=== PATIENT | female | born 1985 | race Caucasian/White ===

== ENCOUNTER 2017-10-12 15:44 | Outpatient (POV) | payer MEDICAID, SELFPAY | END 2017-10-12 16:50 | disposition home or self-care (01) | PROVIDERS: Visit Provider Podiatrist | DX: M72.2 Plantar fascial fibromatosis (principal) | CPT/HCPCS: 99202; 20550; J1100; J3301 ==

== ENCOUNTER 2017-11-24 11:09 | Emergency (ER) | payer MEDICAID, SELFPAY ==
[2017-11-24 11:13] VITALS: BP 148/100; PULSE 87; RESP 18; TEMP 36.3; O2SAT 99; BMI 49.1
--- NOTE | 2017-11-24 11:32 | HMH.EDUTC ---
[facility] [place] Clinical Impression: Pain due to dental caries Disposition: Home, Self-Care Condition on Discharge: Good Instructions: DI for Dental Pain Additional Instructions: Call Dr. Coronel's office as soon as you leave here. They will get your information and then have you come in this afternoon for an evaluation. Based on what they find, will determine when they schedule your next appointment. * Start amoxicillin today!!! Finish it as directed even if feeling better unless directed otherwise by Dr. Coronel or you develop a reaction (in which case stop the medication and follow up immediately) * Tylenol every 4-6 hours no more then 1000mg per dose or 4000mg in 24 hours as needed for pain * Use caution with motrin, aleve, advil, ibuprofen since you are taking meloxicam for your heel spur * Warm moist compresses on that side of face * Seek immediate medical attention for new or worsening symptoms as we discussed. Prescriptions: Amoxicillin [Amoxicillin 500mg Cap] 500 mg PO TID #30 cap Referrals: Yves Coronel [Referring] - (Call them immediately after our appt [phone] as we discussed. ) Time of Disposition: 11:49 Medical Decision Making Vital Signs: 11/24/17 11:13 Temperature 97.3 F L Temperature Source Temporal Artery Scan Pulse Rate [Right Radial] 87 Respiratory Rate 18 Blood Pressure [Right Arm] 148/100 Blood Pressure Mean [Right Arm] 116 Blood Pressure Source [Right Arm] Automatic Cuff Blood Pressure Position [Right Arm] Sitting 02 Sat by Pulse Oximetry 99 Oxygen Delivery Method Room Air Orders (Tests/Meds): ED MEDICATIONS Discontinued Medications Generic Name Dose Route Start Last Admin Trade Name Melisa PRN Reason Stop Dose Admin Benzocaine/Butamben/Tetracaine HCl 1 gm 11/24/17 11:37 Cetacaine [place] TP 11/24/17 11:38 ONCE ONE Lidocaine HCl 15 ml 11/24/17 11:37 Lidocaine 2% Viscous Solution 15ml Udc PO 11/24/17 11:38 ONCE ONE - Physician Consults Physician Consulted: Attemped to consult Pt's reported dentist, Dr. Cruz Time: 11:35 Reason -: Pt condition Comment/Response: NA. Office open by appt only on Fridays Additional Consult: Dr. Coronel's office Time: 11:40 Reason -: Pt condition Comment/Response: Spoke to Digna. Can speak with and evaluate patient today. Have pt call her after this appt then they will evaluate her this afternoon in order to schedule the next appointment. - Jim Inquiry Pt receiving controlled substance: No [facility] [place] - General Stated complaint: dental pain Time Seen by Provider: 11/24/17 11:25 Mode of Arrival: Ambulatory Source of Information: Patient Limitations: No Limitations Description of Symptoms (Recalled from Triage Doc. by RN): Pt C/O dental pain x2 days HEENT Symptoms (Recalled from RN notes): No Resp Symptoms (Recalled from RN notes): No Skin Symptoms (Recalled from RN notes): No MS Symptoms (Recalled from RN notes): No Functional Status (Recalled from RN notes): N/A - History of Present Illness Provider Complaint: c/o tooth pain right upper molar x 2-3 days. Reports a hx of cavity in that tooth. Called dentist office, Dr. Cruz and reports she was told because she had a new last name she was a new pt. Next new pt appt not for 3 weeks. Pt reports she was there last 1 year ago. Denies swelling and not sure about redness or drainage. Not that I have noticed . No fever, aches, chills. Tylenol barely helping. On meloxicam for heel spur. - Related Data Home Medications Medication Instructions Recorded Confirmed ibuprofen 800 mg tablet 800 mg PO 7 Days tab 11/23/17 meloxicam 7.5 mg tablet 7.5 mg PO 30 Days tab 11/23/17 Previous Rx's Medication Instructions Recorded Amoxicillin [Amoxicillin 500mg 500 mg PO TID #30 cap 11/24/17 Cap] Allergies Allergy/AdvReac Type Severity Reaction Status Date / Time coconut Allergy Unknown Verified 11/24/17 11:52 [From COCONUT (FOOD/DRUG)]
--- NOTE | 2017-11-24 11:36 | ED_ITS ---
[facility] [place] Clinical Impression: Pain due to dental caries Disposition: Home, Self-Care Condition on Discharge: Good Instructions: DI for Dental Pain Additional Instructions: Call Dr. Coronel's office as soon as you leave here. They will get your information and then have you come in this afternoon for an evaluation. Based on what they find, will determine when they schedule your next appointment. * Start amoxicillin today!!! Finish it as directed even if feeling better unless directed otherwise by Dr. Coronel or you develop a reaction (in which case stop the medication and follow up immediately) * Tylenol every 4-6 hours no more then 1000mg per dose or 4000mg in 24 hours as needed for pain * Use caution with motrin, aleve, advil, ibuprofen since you are taking meloxicam for your heel spur * Warm moist compresses on that side of face * Seek immediate medical attention for new or worsening symptoms as we discussed. Prescriptions: Amoxicillin [Amoxicillin 500mg Cap] 500 mg PO TID #30 cap Referrals: Yves Coronel [Referring] - (Call them immediately after our appt [phone] as we discussed. ) Time of Disposition: 11:49 Medical Decision Making Vital Signs: 11/24/17 11:13 Temperature 97.3 F L Temperature Source Temporal Artery Scan Pulse Rate [Right Radial] 87 Respiratory Rate 18 Blood Pressure [Right Arm] 148/100 Blood Pressure Mean [Right Arm] 116 Blood Pressure Source [Right Arm] Automatic Cuff Blood Pressure Position [Right Arm] Sitting 02 Sat by Pulse Oximetry 99 Oxygen Delivery Method Room Air Orders (Tests/Meds): ED MEDICATIONS Discontinued Medications Generic Name Dose Route Start Last Admin Trade Name Melisa PRN Reason Stop Dose Admin Benzocaine/Butamben/Tetracaine HCl 1 gm 11/24/17 11:37 Cetacaine [place] TP 11/24/17 11:38 ONCE ONE Lidocaine HCl 15 ml 11/24/17 11:37 Lidocaine 2% Viscous Solution 15ml Udc PO 11/24/17 11:38 ONCE ONE - Physician Consults Physician Consulted: Attemped to consult Pt's reported dentist, Dr. Cruz Time: 11:35 Reason -: Pt condition Comment/Response: NA. Office open by appt only on Fridays Additional Consult: Dr. Coronel's office Time: 11:40 Reason -: Pt condition Comment/Response: Spoke to Digna. Can speak with and evaluate patient today. Have pt call her after this appt then they will evaluate her this afternoon in order to schedule the next appointment. - Jim Inquiry Pt receiving controlled substance: No [facility] [place] HPI - General Stated complaint: dental pain Time Seen by Provider: 11/24/17 11:25 Mode of Arrival: Ambulatory Source of Information: Patient Limitations: No Limitations Description of Symptoms (Recalled from Triage Doc. by RN): Pt C/O dental pain x2 days HEENT Symptoms (Recalled from RN notes): No Resp Symptoms (Recalled from RN notes): No Skin Symptoms (Recalled from RN notes): No MS Symptoms (Recalled from RN notes): No Functional Status (Recalled from RN notes): N/A - History of Present Illness Provider Complaint: c/o tooth pain right upper molar x 2-3 days. Reports a hx of cavity in that tooth. Called dentist office, Dr. Cruz and reports she was told because she had a new last name she was a new pt. Next new pt appt not for 3 weeks. Pt reports she was there last 1 year ago. Denies swelling and not sure about redness or drainage. Not that I have noticed . No fe
[2017-11-24 12:04] VITALS: BP 148/100; PULSE 87; RESP 18; TEMP 36.3; O2SAT 99
== END 2017-11-24 12:04 | disposition home or self-care (01) ==
PROVIDERS: Emergency Provider Nurse Practitioner Family
DX: K02.9 Dental caries, unspecified (principal)
CPT/HCPCS: 99202

== ENCOUNTER 2017-12-12 06:15 | Emergency (ER) | payer MEDICAID, SELFPAY ==
[2017-12-12 06:22] VITALS: BP 145/99; PULSE 98; RESP 16; TEMP 36.9; O2SAT 97; BMI 50.1
--- NOTE | 2017-12-12 06:41 | HMH.EDURI ---
ED Disposition Clinical Impression: Laryngitis Disposition: Home, Self-Care Condition on Discharge: Good Instructions: DI for Laryngitis Additional Instructions: use meds and see pcp for follow up Prescriptions: Azithromycin [Zithromax 250mg tab] 250 mg PO DIRECTED #6 tab Benzonatate [Tessalon Perle 100mg Cap] 100 mg PO TID #30 cap predniSONE [Prednisone 20mg Tab] 20 mg PO DAILY #10 tab Referrals: Hilario Mack MD [Primary Care Provider] - - Critical Care Critical Care Time: No Attestation: On , the high probability of a clinically significant, sudden or life threatening deterioration of the following system(s) required my full and direct attention, intervention and personal management. The time I documented below is in addition to time spent performing reported procedures but includes the following listed in this critical care notation. Medical Decision Making - Medical Records Medical records reviewed: Yes: I reviewed the patient's medical records. Vital Signs: 12/12/17 06:22 Temperature 98.4 F Temperature Source Oral Pulse Rate [Right Brachial] 98 H Respiratory Rate 16 Blood Pressure [Right Arm] 145/99 Blood Pressure Mean [Right Arm] 114 Blood Pressure Source [Right Arm] Automatic Cuff Blood Pressure Position [Right Arm] Supine 02 Sat by Pulse Oximetry 97 Oxygen Delivery Method Room Air - Lab Data Lab results reviewed: Yes: I reviewed the patient's lab results. Lab Results 12/12/17 06:35: Influenza Type A Ag Negative, Influenza Type B Ag Negative, Group A Strep Rapid Negative Orders (Tests/Meds): ORDERS Category Date Time Status Strep Screen Confirmation Stat Micro 12/12/17 06:35 Received - Jim Inquiry Pt receiving controlled substance: No URI/Sore Throat HPI - General Chief Complaint: Ear Stated Complaint: Sore throat, right ear pain, sinus drainage Time Seen by Provider: 12/12/17 06:41 Mode of Arrival: Ambulatory Source of Information: Patient, Significant Other, Medical Record Limitations: No Limitations Description of Symptoms (Recalled from ER Triage Doc. by RN): SORE THROAT, MAINLY ON RIGHT SIDE, WITH ASSOCIATED EAR PAIN AND COUGH. 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 Complaint: cough, sore throat Onset (ago): day(s) Severity: moderate Able to tolerate fluids by mouth: Yes - Related Data Home Medications Medication Instructions Recorded Confirmed meloxicam 7.5 mg tablet 7.5 mg PO DAILY 30 Days tab 11/23/17 12/12/17 Previous Rx's Medication Instructions Recorded Azithromycin [Zithromax 250mg 250 mg PO DIRECTED #6 tab 12/12/17 tab] Benzonatate [Tessalon Perle 100mg 100 mg PO TID #30 cap 12/12/17 Cap] predniSONE [Prednisone 20mg 20 mg PO DAILY #10 tab 12/12/17 Tab] Allergies Allergy/AdvReac Type Severity Reaction Status Date / Time coconut Allergy Unknown Verified 11/24/17 11:52 [From COCONUT (FOOD/DRUG)] [facility] History I have reviewed the patient's past medical history: Yes Medical History: Reports:: Gastroesophageal Reflux Disease(GERD) Denies:: Aneurysm, Atrial Fibrillation, Cancer, Congestive Heart Failure, Diabetes Mellitus Type 1, Diabetes Mellitus Type 2, Hyperlipidemia, Hypertension, MRSA, Renal Disease, Renal Insufficiency Other Medical History: Reports: Arthritis, Other (heel spur). Denies: Hypothyroidism, Thyroid Disease Laterality Cases: Bilateral: Tonsillectomy Other Surgeries: Yes: Other (cholecystectomy) Amputation: No Fractures: No (left ankle (x1), right ankle (x2), right wrist, left big toe) - Social History Educational Level: Attended High School Smoking Status: Current every day smoker Tobacco Type: cigarettes # Packs/Day (cigarettes): 1 Alcohol Intake: never Alcohol Intake Frequency:: 0-2 drinks per day Substance Use Type: denies use Occupational Status: employed - Psych
--- NOTE | 2017-12-12 06:44 | ED_ITS ---
ED Disposition Clinical Impression: Laryngitis Disposition: Home, Self-Care Condition on Discharge: Good Instructions: DI for Laryngitis Additional Instructions: use meds and see pcp for follow up Prescriptions: Azithromycin [Zithromax 250mg tab] 250 mg PO DIRECTED #6 tab Benzonatate [Tessalon Perle 100mg Cap] 100 mg PO TID #30 cap predniSONE [Prednisone 20mg Tab] 20 mg PO DAILY #10 tab Referrals: Hilario Mack MD [Primary Care Provider] - - Critical Care Critical Care Time: No Attestation: On , the high probability of a clinically significant, sudden or life threatening deterioration of the following system(s) required my full and direct attention, intervention and personal management. The time I documented below is in addition to time spent performing reported procedures but includes the following listed in this critical care notation. Medical Decision Making - Medical Records Medical records reviewed: Yes: I reviewed the patient's medical records. Vital Signs: 12/12/17 06:22 Temperature 98.4 F Temperature Source Oral Pulse Rate [Right Brachial] 98 H Respiratory Rate 16 Blood Pressure [Right Arm] 145/99 Blood Pressure Mean [Right Arm] 114 Blood Pressure Source [Right Arm] Automatic Cuff Blood Pressure Position [Right Arm] Supine 02 Sat by Pulse Oximetry 97 Oxygen Delivery Method Room Air - Lab Data Lab results reviewed: Yes: I reviewed the patient's lab results. Lab Results 12/12/17 06:35: Influenza Type A Ag Negative, Influenza Type B Ag Negative, Group A Strep Rapid Negative Orders (Tests/Meds): ORDERS Category Date Time Status Strep Screen Confirmation Stat Micro 12/12/17 06:35 Received - Jim Inquiry Pt receiving controlled substance: No URI/Sore Throat HPI - General Chief Complaint: Ear Stated Complaint: Sore throat, right ear pain, sinus drainage Time Seen by Provider: 12/12/17 06:41 Mode of Arrival: Ambulatory Source of Information: Patient, Significant Other, Medical Record Limitations: No Limitations Description of Symptoms (Recalled from ER Triage Doc. by RN): SORE THROAT, MAINLY ON RIGHT SIDE, WITH ASSOCIATED EAR PAIN AND COUGH. 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 Complaint: cough, sore throat Onset (ago): day(s) Severity: moderate Able to tolerate fluids by mouth: Yes - Related Data Home Medications Medication Instructions Recorded Confirmed meloxicam 7.5 mg tablet 7.5 mg PO DAILY 30 Days tab 11/23/17 12/12/17 Previous Rx's Medication Instructions Recorded Azithromycin [Zithromax 250mg 250 mg PO DIRECTED #6 tab 12/12/17 tab] Benzonatate [Tessalon Perle 100mg 100 mg PO TID #30 cap 12/12/17 Cap] predniSONE [Prednisone 20mg 20 mg PO DAILY #10 tab 12/12/17 Tab] Allergies Allergy/AdvReac Type Severity Reaction Status Date / Time coconut Allergy Unknown Verified 11/24/17 11:52 [From COCONUT (FOOD/DRUG)] [facility] History I have reviewed the patient's past medical history: Yes Medical History: Reports:: Gastroesophageal Reflux Disease(GERD) Denies:: Aneurysm, Atrial Fibrillation, Cancer, Congestive Heart Failure, Awa
[2017-12-12 06:58] LABS: Strep Scrn Group A (Rapid) Negative (Negative)
[2017-12-12 07:26] VITALS: BP 135/87; PULSE 85; RESP 18; TEMP 36.8; O2SAT 98
== END 2017-12-12 07:26 | disposition home or self-care (01) ==
PROVIDERS: Emergency Provider Emergency Medicine; PCP Emergency Medicine
DX: J04.0 Acute laryngitis (principal); K02.9 Dental caries, unspecified
CPT/HCPCS: 87275; 87276; 87430; 99281

== ENCOUNTER 2018-01-07 23:55 | Emergency (ER) | payer MEDICAID, SELFPAY ==
[2018-01-08 00:04] VITALS: BP 132/93; PULSE 85; RESP 16; TEMP 36.8; O2SAT 98; BMI 50.1
[2018-01-08 00:51] LABS: Strep Scrn Group A (Rapid) Negative (Negative)
--- NOTE | 2018-01-08 01:09 | HMH.EDURI ---
ED Disposition Clinical Impression: Acute bronchitis Qualifiers: Bronchitis organism: other organism Qualified Code(s): J20.8 - Acute bronchitis due to other specified organisms Disposition: Home, Self-Care Condition on Discharge: Good Instructions: DI for Acute Bronchitis Additional Instructions: Please drink plenty of fluids, alternate Motrin with Tylenol for body aches/fever control, take antibiotics prescribed as directed, follow-up with your PCP within 2 days if not better. Prescriptions: Amoxicillin/Potassium Clav [Augmentin 875-125 Tablet] 1 tab PO Q12H #20 tab Referrals: Hilario Mack MD [Primary Care Provider] - Forms: Work/School Release Time of Disposition: :12 - Critical Care Critical Care Time: No Attestation: On 01/07/18, the high probability of a clinically significant, sudden or life threatening deterioration of the following system(s) required my full and direct attention, intervention and personal management. The time I documented below is in addition to time spent performing reported procedures but includes the following listed in this critical care notation. Medical Decision Making - Medical Records Medical records reviewed: Yes: I reviewed the patient's medical records. - Jim Inquiry Pt receiving controlled substance: No Vital Signs: 01/08/18 00:04 01/08/18 01:19 Temperature 98.2 F 98.4 F Temperature Source Oral Pulse Rate 84 Pulse Rate [Right Brachial] 85 Respiratory Rate 16 18 Blood Pressure 106/44 Blood Pressure [Right Arm] 132/93 Blood Pressure Mean [Right Arm] 106 02 Sat by Pulse Oximetry 98 - Lab Data Lab Results 01/08/18 00:19: Influenza Type A Ag Negative, Influenza Type B Ag Negative, Group A Strep Rapid Negative Orders (Tests/Meds): ED MEDICATIONS Discontinued Medications Generic Name Dose Route Start Last Admin Trade Name Freq PRN Reason Stop Dose Admin Amoxicillin/Clavulanate Potassium 1 each 01/08/18 01:14 01/08/18 01:19 Augmentin 500mg Tablet PO 01/08/18 01:15 1 each ONCE ONE Administration Protocol Benzonatate 100 mg 01/08/18 09:00 Tessalon Perles 100mg Capsule PO 02/07/18 08:59 TID STEPHANIE Non-Formulary Medication 7.5 mg 01/08/18 09:00 Meloxicam [Meloxicam] PO 02/07/18 08:59 DAILY STEPHANIE Prednisone 20 mg 01/08/18 09:00 Deltasone 20mg Tablet PO 02/07/18 08:59 DAILY STEPHANIE ORDERS Category Date Time Status Strep Screen Confirmation Stat Micro 01/08/18 00:19 Received - Reevaluation(s) Time: 01:00 Reevaluation #1: Upon reevaluation patient appears afebrile, no acute distress. Advise of results obtained, need to follow-up with PCP within 2 days if not better. URI/Sore Throat HPI - General Chief Complaint: Upper Respiratory Infection Stated Complaint: cough,chest congestion,vomiting,unable to keep any Time Seen by Provider: 01/08/18 00:18 Mode of Arrival: Ambulatory Limitations: No Limitations Description of Symptoms (Recalled from ER Triage Doc. by RN): Pt c/o cough, congestion, runny nose. N/V, body aches, sore throat,and HARP for the past 2 days. - History of Present Illness HPI Narrative: This is a 32-year-old female patient arriving to the emergency room with sore throat, body aches, cough and congestion for the past 24 hours. Patient denies any recent travel or exposure to sick contacts. MD Complaint: fever, cough, sore throat, rhinorrhea, nasal congestion Onset (ago): hour(s) (24) Duration: intermittent Severity: mild Severity scale (1-10): 2 Exacerbating factors: nothing Description of mucous: yellow Able to tolerate fluids by mouth: No Associated symptoms: fever, chills, diaphoresis, rhinorrhea, nasal congestion, sore throat Treatments prior to arrival: none - Related Data Home Medications Medication Instructions Recorded Confirmed meloxicam 7.5 mg tablet 7.5 mg PO DAILY 30 Days tab 11/23/17 12/12/17 Previous Rx's Med
--- NOTE | 2018-01-08 01:12 | ED_ITS ---
ED Disposition Clinical Impression: Acute bronchitis Qualifiers: Bronchitis organism: other organism Qualified Code(s): J20.8 - Acute bronchitis due to other specified organisms Disposition: Home, Self-Care Condition on Discharge: Good Instructions: DI for Acute Bronchitis Additional Instructions: Please drink plenty of fluids, alternate Motrin with Tylenol for body aches/ fever control, take antibiotics prescribed as directed, follow-up with your PCP within 2 days if not better. Prescriptions: Amoxicillin/Potassium Clav [Augmentin 875-125 Tablet] 1 tab PO Q12H #20 tab Referrals: Hilario Mack MD [Primary Care Provider] - Forms: Work/School Release Time of Disposition: :12 - Critical Care Critical Care Time: No Attestation: On 01/07/18, the high probability of a clinically significant, sudden or life threatening deterioration of the following system(s) required my full and direct attention, intervention and personal management. The time I documented below is in addition to time spent performing reported procedures but includes the following listed in this critical care notation. Medical Decision Making - Medical Records Medical records reviewed: Yes: I reviewed the patient's medical records. - Jim Inquiry Pt receiving controlled substance: No Vital Signs: 01/08/18 00:04 01/08/18 01:19 Temperature 98.2 F 98.4 F Temperature Source Oral Pulse Rate 84 Pulse Rate [Right Brachial] 85 Respiratory Rate 16 18 Blood Pressure 106/44 Blood Pressure [Right Arm] 132/93 Blood Pressure Mean [Right Arm] 106 02 Sat by Pulse Oximetry 98 - Lab Data Lab Results 01/08/18 00:19: Influenza Type A Ag Negative, Influenza Type B Ag Negative, Group A Strep Rapid Negative Orders (Tests/Meds): ED MEDICATIONS Discontinued Medications Generic Name Dose Route Start Last Admin Trade Name Freq PRN Reason Stop Dose Admin Amoxicillin/Clavulanate Potassium 1 each 01/08/18 01:14 01/08/18 01:19 Augmentin 500mg Tablet PO 01/08/18 01:15 1 each ONCE ONE Administration Protocol Benzonatate 100 mg 01/08/18 09:00 Tessalon Perles 100mg Capsule PO 02/07/18 08:59 TID STEPHANIE Non-Formulary Medication 7.5 mg 01/08/18 09:00 Meloxicam [Meloxicam] PO 02/07/18 08:59 DAILY STEPHANIE Prednisone 20 mg 01/08/18 09:00 Deltasone 20mg Tablet PO 02/07/18 08:59 DAILY STEPHANIE ORDERS Category Date Time Status Strep Screen Confirmation Stat Micro 01/08/18 00:19 Received - Reevaluation(s) Time: 01:00 Reevaluation #1: Upon reevaluation patient appears afebrile, no acute distress. Advise of results obtained, need to follow-up with PCP within 2 days if not better. URI/Sore Throat HPI - General Chief Complaint: Upper Respiratory Infection Stated Complaint: cough,chest congestion,vomiting,unable to keep any Time Seen by Provider: 01/08/18 00:18 Mode of Arrival: Ambulatory Limitations: No Limitations Description of Symptoms (Recalled from ER Triage Doc. by RN): Pt c/o cough, congestion, runny nose. N/V, body aches, sore throat,and HARP for the past 2 days. - History of Present Illness HPI Narrative: This is a 32-year-old female patient arriving to the emergency room with sore
[2018-01-08 01:19] VITALS: BP 106/44; PULSE 84; RESP 18; TEMP 36.9; O2SAT 97
== END 2018-01-08 01:19 | disposition home or self-care (01) ==
PROVIDERS: Emergency Provider Emergency Medicine; PCP Emergency Medicine
DX: J20.8 Acute bronchitis due to other specified organisms (principal); K21.9 Gastro-esophageal reflux disease without esophagitis; E03.9 Hypothyroidism, unspecified; Z90.49 Acquired absence of other specified parts of digestive tract
CPT/HCPCS: 87275; 87276; 87430; 99282

== ENCOUNTER 2022-03-11 15:56 | Emergency (ER) | payer SELFPAY ==
[2022-03-11 16:20] VITALS: BP 130/107; PULSE 116; RESP 20; TEMP 36.7; O2SAT 97; BMI 43.8
[2022-03-11 16:45] LABS: Apearance,Urine Cloudy (Clear); Bilirubin,Urine 1+ (Negative); Blood, Urine 1+ (Negative); Color,Urine Dark Yellow (Yellow); Glucose,Urine (UA) Negative (Negative); Ketones,Urine Negative (Negative); Protein,Urine Trace (Negative); Urobilinogen,Urine 1 EU/dl (0.2)
[2022-03-11 16:46] LABS: UTC Leukocyte Esterase,Urine 1+ (Negative); UTC Nitrate,Urine Positive (Negative)
--- NOTE | 2022-03-11 16:46 | HMH.EDUTC ---
[facility] [place] Disposition Clinical Impression: UTI (urinary tract infection) Qualifiers: Urinary tract infection type: site unspecified Hematuria presence: with hematuria Qualified Code(s): N39.0 - Urinary tract infection, site not specified Disposition: Home, Self-Care Condition on Discharge: Good Instructions: DI for Urinary Tract Infection (UTI), DI for Fatigue Additional Instructions: *Increase fluids. Water not Soda or Tea *Start antibiotic immediately and be sure to take as ordered for the FULL length of time although you should start to see improvement over the next 48 hours *Be SURE to follow up anytime for new or worsening symptoms with your family doctor. AND in 48 hours for urine culture results with your family doctor, if you do not have a doctor then you may call back to the [facility] for urine culture results and further treatment. We do recommend that you choose and establish care with a Primary Care Physician. AND follow up with them in 10-14 days to repeat UA to ensure infection is resolved and blood no longer present *Be sure to let your PCP know that we sent urine cultures from the [facility] so they can follow up to ensure that you area the on the correct antibiotic Call your doctor office and make appointment for 48 hours (2 days from today) to follow up and get the results of your urine culture and further treatment Prescriptions: Cefdinir [Omnicef 300mg Capsule] 300 mg PO BID 7 Days #14 cap Transmission Status: Pending to [id number] Referrals: Skip Judd MD [Primary Care Provider] - As needed Chaim King MD [Staff Physician] - Hilary Schwarz MD [Staff Physician] - Time of Disposition: 17:04 Medical Decision Making - Jim Inquiry Pt receiving controlled substance: No Jim was queried for this patient: No Vital Signs: 03/11/22 16:20 03/11/22 16:57 Temperature 98.0 F 98.0 F Temperature Source Oral Pulse Rate 116 H Pulse Rate [Left Brachial] 116 H Respiratory Rate 20 20 Blood Pressure 130/107 H Blood Pressure [Left Arm] 130/107 H Blood Pressure Mean [Left Arm] 114 Blood Pressure Source [Left Arm] Automatic Cuff Blood Pressure Position [Left Arm] Sitting 02 Sat by Pulse Oximetry 97 Oxygen Delivery Method Room Air - Lab Data Lab results reviewed: Yes: I reviewed the patient's lab results. Lab Results 03/11/22 16:43: Urine Color Dark yellow, Urine Appearance Cloudy, Urine pH 6.0, Ur Specific [place] 1.020, Urine Protein Trace, Urine Glucose (UA) Negative, Urine Ketones Negative, Urine Blood 1+, Urine Nitrate Positive A, Urine Bilirubin 1+ A, Urine Urobilinogen 1, Ur Leukocyte Esterase 1+ A 03/11/22 16:46: Tst Clinic Negative Orders (Tests/Meds): ORDERS Category Date Time Status Urine Culture Stat Micro 03/11/22 16:43 Ordered Medical Decision Narrative: Discussed with patient finding of UA and recommended follow up with OBGYN for irregular periods and needs to get a PCP for full workup and examination and she agreed will treat UTI in the [facility] and she will call Monday and make appointments to get in for a thorough workup and evaluation by PCP [facility] [place] HPI - General Stated complaint: back pain Time Seen by Provider: 03/11/22 16:51 Mode of Arrival: Ambulatory Source of Information: Patient, Spouse Limitations: No Limitations Description of Symptoms (Recalled from Triage Doc. by RN): PATIENT C/O DECREASED APPETITE AND IRREGULAR MENSTRUAL CYCLE X 2 MONTHS AND SORENESS/WEAKNESS TO BLE AFTER ACTIVITY X 1 MONTH. DENIES ABDOMINAL PAIN AND N/V/D. SHE REPORTS AN UNINTENTIONAL 150 POUND WEIGHT LOSS OVER LAST 9 MONTHS HEENT Symptoms (Recalled from RN notes): No Resp Symptoms (Recalled from RN notes): No Skin Symptoms (Recalled from RN notes): No MS Symptoms (Recalled from RN notes): Yes Functional Status (Recalled from RN notes): WNL - History of Present Illness Provider Complaint: Patient states she has been having low back pain on and off for a few weeks Sta
[2022-03-11 16:47] LABS: UTC Pregnancy Test, Urine Negative (Negative)
[2022-03-11 16:57] VITALS: BP 130/107; PULSE 116; RESP 20; TEMP 36.7; O2SAT 97
== END 2022-03-11 17:09 | disposition home or self-care (01) ==
PROVIDERS: Emergency Provider Nurse Practitioner; PCP Family Medicine
DX: N30.00 Acute cystitis without hematuria (principal); G43.709 Chronic migraine without aura, not intractable, without status migrainosus; K21.9 Gastro-esophageal reflux disease without esophagitis; E03.9 Hypothyroidism, unspecified; F17.210 Nicotine dependence, cigarettes, uncomplicated
CPT/HCPCS: 81003; 81025; 87086; 87088; 87186; 99212; G0463

== ENCOUNTER 2022-04-02 18:09 | Emergency (ER) | payer SELFPAY ==
[2022-04-02 18:11] VITALS: BP 150/77; PULSE 87; RESP 20; TEMP 36.7; O2SAT 99; BMI 40.6
--- NOTE | 2022-04-02 19:32 | ECG_ITS ---
APPROVED REPORT Exam: Resting ECG HR:91 bpm ECG Measurements Heart Rate 91 AXES KS 190 P 71 QRSd 108 QRS 102 QT 351 T 129 QTc 400 Conclusion SINUS RHYTHM RIGHT AXIS DEVIATION [QRS AXIS > 100] LOW QRS VOLTAGE IN PRECORDIAL LEADS [QRS DEFLECTION < 1.0 mV IN CHEST LEADS] NONSPECIFIC ST & T-WAVE ABNORMALITY ABNORMAL ECG UNCONFIRMED REPORT Electronically signed by : Mian Benavidez MD 04/05/2022 22:21:17
--- NOTE | 2022-04-02 20:17 | HMH.EDGENADL ---
ED Disposition Clinical Impression: Encounter for medical assessment Disposition: Left Against Medical Advice Condition on Discharge: Undetermined Referrals: Skip Judd MD [Primary Care Provider] - - Critical Care Critical Care Time: No Attestation: On 04/02/22, the high probability of a clinically significant, sudden or life threatening deterioration of the following system(s) required my full and direct attention, intervention and personal management. The time I documented below is in addition to time spent performing reported procedures but includes the following listed in this critical care notation. Medical Decision Making - Medical Records Medical records reviewed: Yes: I reviewed the patient's medical records. - Jim Inquiry Pt receiving controlled substance: No Vital Signs: 04/02/22 18:11 04/02/22 22:26 Temperature 98.1 F 98.1 F Temperature Source Oral Oral Pulse Rate 81 Pulse Rate [Right] 87 Respiratory Rate 20 20 Blood Pressure 146/77 H Blood Pressure [Right Arm] 150/77 H Blood Pressure Mean [Right Arm] 101 Blood Pressure Source [Right Arm] Automatic Cuff 02 Sat by Pulse Oximetry 99 Oxygen Delivery Method Room Air - Lab Data Lab Results 04/02/22 19:41: WBC 8.8, RBC 5.63 H, Hgb 17.8 H, Hct 52.7 H, MCV 93.6, MCH 31.7 H, MCHC 33.8, RDW 14.2, Plt Count 234, MPV 9.1, Neut % (Auto) 71.8, Lymph % (Auto) 16.3, [place] % (Auto) 8.4, Eos % (Auto) 1.3, Baso % (Auto) 2.2 H, Neut # (Auto) 6.3, Lymph # (Auto) 1.4, [place] # (Auto) 0.7, Eos # (Auto) 0.1, Baso # (Auto) 0.2 04/02/22 19:41: Sodium 138, Potassium 3.0 L, Chloride 102, Carbon Dioxide 26, Anion Gap 13.0, BUN 5 L, Creatinine 0.60, Estimated Creat Clear 253, Estimated GFR 114, Est GFR ( Amer) 138, Glucose 132 H, Calcium 9.8, Total Bilirubin 0.7, AST 43 H, ALT 37, Alkaline Phosphatase 93, C-Reactive Protein 14.6 H, Total Protein 7.7, Albumin 4.1, Globulin 3.6 H, Albumin/Globulin Ratio 1.1 04/02/22 19:41: Serum HCG, Qual Negative Result diagrams: 04/02/22 19:41 04/02/22 19:41 Orders (Tests/Meds): ED MEDICATIONS Discontinued Medications Generic Name Dose Route Start Last Admin Trade Name Freq PRN Reason Stop Dose Admin Potassium Chloride 40 meq 04/02/22 20:54 04/02/22 21:53 Potassium Chloride 20meq Tab PO 04/02/22 20:55 40 meq ONCE ONE Administration - Radiology Data #1 Image(s): Chest Image Reviewed: Yes I have reviewed radiologist's interpretation Preliminary Findings: Normal/NAD Patient: Lo David MR#: [id number] : 1985 Acct:[id number] Age/Sex: 36 / F ADM Date: 04/02/22 Loc: ER Attending Dr: Ordering Physician: Pipe Suggs MD Date of Service: 04/02/22 Procedure(s): XR chest portable Accession Number(s): [id number] cc: Skip Judd MD; Juliane Galindo MD~ PROCEDURE INFORMATION: Exam: XR Chest Exam date and time: 04/02/2022 9:27 PM Age: 36 years old Clinical indication: Shortness of breath; Patient HX: Smoker; Additional info: Dyspnea TECHNIQUE: Imaging protocol: XR of the chest. Views: 1 view. COMPARISON: CR CXR CHEST(2 VIEWS-NOT PORTABLE) 10/25/2015 8:35 PM FINDINGS: Lungs: Unremarkable. No consolidation. Pleural spaces: Unremarkable. No pleural effusion. No pneumothorax. Heart/Mediastinum: Unremarkable. No cardiomegaly. Bones/joints: Unremarkable. IMPRESSION: No acute cardiopulmonary abnormality. Medical Decision Narrative: 36-year-old female presents with multiple complaints. Ultimately she is hemodynamically stable and well-appearing nontoxic on initial exam today. Her sensory change complaints of chronic glove and stocking sensory loss that is intermittent is not consistent with a focal neurologic change she also has no motor deficit and reflexes are normal. Suspect given her CBC was hemoconcentrated that some of her symptoms are related orthostatic changes earlier to
[2022-04-02 20:30] LABS: Chloride 102 mmol/L (98-107)
[2022-04-02 20:31] LABS: Sodium 138 mmol/L (136-145)
[2022-04-02 20:33] LABS: Alanine Aminotransferase 37 U/L (12-78); Albumin Level 4.1 g/dl (3.5-5.0); Albumin/Globulin Ratio 1.1 (1.1-1.8); Alkaline Phosphatase 93 U/L (38-126); Aspartate Amino Transferase 43 U/L (14-36); Bilirubin,Total 0.7 mg/dl (0.2-1.3); Blood Urea Nitrogen 5 mg/dl (7-17); Carbon Dioxide 26 mmol/L (22.0-30.0); Creatinine Clearance Estimated 253 mL/min (50-200); Estimated Glomerular Filt Rate 114 ml/min (>60); GFR (African American) 138 ML/MIN (>60); Globulin 3.6 g/dL (1.3-3.2); Total Protein,Serum 7.7 g/dl (6.3-8.2)
[2022-04-02 20:34] LABS: Calcium 9.8 mg/dl (8.4-10.2); Glucose 132 mg/dl (74-100)
[2022-04-02 20:37] LABS: Basophils # 0.2 K/mm3 (0-0.2); Basophils % 2.2 % (0.1-2.0); Eosinophils # 0.1 K/mm3 (0.0-0.4); Eosinophils % 1.3 % (0.1-12.0); Hematocrit 52.7 % (37.0-47.0); Hemoglobin 17.8 g/dL (12.2-16.2); Lymphocytes # 1.4 K/mm3 (0.7-4.5); Lymphocytes % 16.3 % (10-50); Mean Corpuscular HGB Conc 33.8 g/dL (31.8-35.4); Mean Corpuscular Hemoglobin 31.7 pg (27.0-31.2); Mean Corpuscular Volume 93.6 fl (81-99); Mean Platelet Volume 9.1 fl (7.4-10.4); Monocytes # 0.7 K/mm3 (0.1-1.0); Monocytes % 8.4 % (1.7-9.3); Neutrophils # 6.3 K/mm3 (1.8-7.8); Neutrophils % 71.8 % (37.0-80.0); Platelet Count 234 K/mm3 (142-424); Red Blood Count 5.63 M/mm3 (4.20-5.40); Red Cell Distribution Width 14.2 % (11.5-17.5); White Blood Count 8.8 K/mm3 (4.8-10.8)
[2022-04-02 20:39] LABS: C-Reactive Protein 14.6 mg/L (0-4)
--- NOTE | 2022-04-02 21:14 | PC.NURSE ---
@ 2039 Dr. Suggs notified of critical potassium
[2022-04-02 21:27] LABS: HCG Qualitative, Serum Negative (Negative)
[2022-04-02 22:26] VITALS: BP 146/77; PULSE 81; RESP 20; TEMP 36.7; O2SAT 99
== END 2022-04-02 22:31 | disposition left against medical advice (07) ==
PROVIDERS: Emergency Provider Student in an Organized Health Care Education/Training Program; PCP Family Medicine
DX: R06.02 Shortness of breath (principal); R20.2 Paresthesia of skin; H53.2 Diplopia; K21.9 Gastro-esophageal reflux disease without esophagitis; G43.909 Migraine, unspecified, not intractable, without status migrainosus; M19.90 Unspecified osteoarthritis, unspecified site; F17.210 Nicotine dependence, cigarettes, uncomplicated; Z79.899 Other long term (current) drug therapy; Z91.018 Allergy to other foods; Z82.49 Family history of ischemic heart disease and other diseases of the circulatory system; Z83.3 Family history of diabetes mellitus; Z83.438 Family history of other disorder of lipoprotein metabolism and other lipidemia
CPT/HCPCS: 71045; 80053; 84703; 85025; 86140; 93005; 99284

== ENCOUNTER 2022-04-13 07:40 | Emergency (ER) | payer SELFPAY ==
[2022-04-13 07:51] VITALS: BP 109/72; PULSE 112; RESP 18; TEMP 36.8; O2SAT 98; BMI 41.6
[2022-04-13 07:55] LABS: Microscopic, Urine URINE MICROSCOPIC (MICROSCOPIC)
[2022-04-13 07:57] VITALS: BP 97/78; PULSE 76; RESP 18; O2SAT 98
[2022-04-13 08:00] VITALS: BP 109/72; PULSE 81; RESP 17; O2SAT 99
[2022-04-13 08:05] LABS: Appearance,Urine CLEAR (Clear); Bilirubin,Urine Negative (Negative); Blood, Urine Negative (Negative); Color,Urine YELLOW (Yellow); Glucose,Urine (UA) Negative (Negative); Ketones,Urine Negative (Negative); Leukocyte Esterase,Urine Negative (Negative); Nitrate,Urine Negative (Negative); PH,Urine 7.5 (5.0-8.5); Protein,Urine Negative (Negative); Urobilinogen,Urine 0.2 EU/dl (0.2)
[2022-04-13 08:06] LABS: Urine Pregnancy, HCG Qual. Negative (Negative)
--- NOTE | 2022-04-13 08:06 | HMH.EDGENADL ---
ED Disposition Clinical Impression: Diplopia, Weakness of both legs, Numbness of legs, Shortness of breath Disposition: Home, Self-Care Condition on Discharge: Fair Additional Instructions: Follow-up with Dr. Judd, call office to make appointment: 2:15 Monday04/19/22 Follow-up with Dr. Landa, neurology: 2:15 Monday04/18/22 - arrive 20 min early to fill out paperwork. Referrals: Skip Judd MD [Primary Care Provider] - Clair Landa MD [Staff Physician] - - Critical Care Critical Care Time: No Attestation: On 04/13/22, the high probability of a clinically significant, sudden or life threatening deterioration of the following system(s) required my full and direct attention, intervention and personal management. The time I documented below is in addition to time spent performing reported procedures but includes the following listed in this critical care notation. Medical Decision Making - Jim Inquiry Pt receiving controlled substance: No Vital Signs: 04/13/22 07:51 04/13/22 07:57 04/13/22 08:00 Temperature 98.3 F Temperature Source Oral Pulse Rate 76 81 Pulse Rate [Left Radial] 112 H Respiratory Rate 18 18 17 Blood Pressure 97/78 L 109/72 L Blood Pressure [Right Arm] 109/72 L Blood Pressure Mean 83 92 Blood Pressure Mean [Right Arm] 84 02 Sat by Pulse Oximetry 98 98 99 - Lab Data Lab Results 04/13/22 07:47: Urine Color Yellow, Urine Appearance Clear, Urine pH 7.5, Ur Specific [place] 1.010, Urine Protein Negative, Urine Glucose (UA) Negative, Urine Ketones Negative, Urine Blood Negative, Urine Nitrate Negative, Urine Bilirubin Negative, Urine Urobilinogen 0.2, Ur Leukocyte Esterase Negative, Urine RBC None, Urine WBC Occasional, Ur Squamous Epith Cells 20-50, Urine Bacteria Trace 04/13/22 07:47: Urine HCG, Qual Negative 04/13/22 08:05: Total Creatine Kinase 31, CK-MB (CK-2) < 0.2, CK-MB (CK-2) Rel Index 0.6, Troponin I < 0.01, C-Reactive Protein 24.7 H 04/13/22 08:05: ESR 16 04/13/22 08:05: TSH 1.05, Free T4 Index 2.6 L, Thyroxine (T4) 8.3, T3 Uptake 31 04/13/22 08:05: Magnesium 1.7 04/13/22 08:09: WBC 11.1 H, RBC 5.43 H, Hgb 17.1 H, Hct 51.2 H, MCV 94.2, MCH 31.4 H, MCHC 33.3, RDW 14.4, Plt Count 295, MPV 9.1, Neut % (Auto) 67.0, Lymph % (Auto) 19.7, [place] % (Auto) 7.9, Eos % (Auto) 3.5, Baso % (Auto) 1.9, Neut # (Auto) 7.4, Lymph # (Auto) 2.2, [place] # (Auto) 0.9, Eos # (Auto) 0.4, Baso # (Auto) 0.2 04/13/22 08:09: Sodium 136, Potassium 3.5, Chloride 103, Carbon Dioxide 26, Anion Gap 10.5, BUN 4 L, Creatinine 0.60, Estimated Creat Clear 128, Estimated GFR 114, Est GFR ( Amer) 138, Glucose 102 H, Calcium 9.3, Total Bilirubin 0.5, AST 35, ALT 34, Alkaline Phosphatase 102, Total Protein 7.5, Albumin 4.0, Globulin 3.5 H, Albumin/Globulin Ratio 1.1 Result diagrams: 04/13/22 08:09 04/13/22 08:09 - Radiology Data #1 Image(s): Chest Image Reviewed: Yes I have reviewed radiologist's interpretation Procedure(s): XR chest portable Accession Number(s): [id number] cc: Angelo Silveira MD; Skip Judd MD~ FINAL REPORT CLINICAL HISTORY: shortness of breath, double vision, dizziness, smoker COMPARISON: April 02, 2022 FINDINGS: A single portable view of the chest was obtained. The heart size and pulmonary vascularity are within normal limits. The mediastinum is within normal limits. Mild right base opacities consistent with atelectasis. The bony thorax is intact. IMPRESSION: Mild right base opacities consistent with atelectasis. Reviewed, Interpreted and Dictated by Angelo Silveira III, MD Transcribed by Breanne John Authenticated and [facility] - CT Data CT Scan: Head Time Received: 09:[address] Reviewed: Yes: I have viewed the radiologist's interpretation Findings Narrative: Procedure(s): CT head/brain wo con Accession Number(s): [id number]
--- NOTE | 2022-04-13 08:11 | XR_ITS ---
FINAL REPORT CLINICAL HISTORY: shortness of breath, double vision, dizziness, smoker COMPARISON: April 02, 2022 FINDINGS: A single portable view of the chest was obtained. The heart size and pulmonary vascularity are within normal limits. The mediastinum is within normal limits. Mild right base opacities consistent with atelectasis. The bony thorax is intact. IMPRESSION: Mild right base opacities consistent with atelectasis. Reviewed, Interpreted and Dictated by Angelo Silveira III, MD Transcribed by Breanne John Authenticated and [facility]
[2022-04-13 08:17] LABS: Bacteria,Urine Trace /lpf; Squamous Epithelial Cell,Urine 20-50 #/hpf (0-5); WBC,Urine Occasional #/hpf (0-3)
--- NOTE | 2022-04-13 08:19 | CT_ITS ---
FINAL REPORT CLINICAL HISTORY: intermittent diplopia, weak/numb legs, dizziness FINDINGS: Axial images of the head were obtained without contrast. Coronal reformatted images were also obtained.This study was performed with techniques to keep radiation doses as low as reasonably achievable (ALARA). Individualized dose reduction techniques using automated exposure control or adjustment of mA and/or kV according to the patient's size were employed. There is no evidence of intracranial hemorrhage or mass. The ventricular size is within normal limits. There is no evidence of shift of the midline structures. No abnormal extra axial fluid collection is identified. No skull abnormality is seen on the bone window images. There is mild mucosal thickening in multiple sinuses. There is a small fluid level in the left maxillary sinus that may represent acute sinusitis. IMPRESSION: No acute intracranial abnormality. Sinus disease as above. Reviewed, Interpreted and Dictated by Angelo Silveira III, MD Transcribed by Breanne John Authenticated and . [facility]
[2022-04-13 08:24] LABS: Basophils # 0.2 K/mm3 (0-0.2); Basophils % 1.9 % (0.1-2.0); Eosinophils # 0.4 K/mm3 (0.0-0.4); Eosinophils % 3.5 % (0.1-12.0); Hematocrit 51.2 % (37.0-47.0); Hemoglobin 17.1 g/dL (12.2-16.2); Lymphocytes # 2.2 K/mm3 (0.7-4.5); Lymphocytes % 19.7 % (10-50); Mean Corpuscular HGB Conc 33.3 g/dL (31.8-35.4); Mean Corpuscular Hemoglobin 31.4 pg (27.0-31.2); Mean Corpuscular Volume 94.2 fl (81-99); Mean Platelet Volume 9.1 fl (7.4-10.4); Monocytes # 0.9 K/mm3 (0.1-1.0); Monocytes % 7.9 % (1.7-9.3); Neutrophils # 7.4 K/mm3 (1.8-7.8); Platelet Count 295 K/mm3 (142-424); Red Blood Count 5.43 M/mm3 (4.20-5.40); Red Cell Distribution Width 14.4 % (11.5-17.5); White Blood Count 11.1 K/mm3 (4.8-10.8)
--- NOTE | 2022-04-13 08:33 | ECG_ITS ---
APPROVED REPORT Exam: Resting ECG HR:108 bpm ECG Measurements Heart Rate 108 AXES HI 188 P 58 QRSd 101 QRS 85 QT 335 T 55 QTc 398 Conclusion SINUS TACHYCARDIA LOW QRS VOLTAGE IN PRECORDIAL LEADS [QRS DEFLECTION < 1.0 mV IN CHEST LEADS] NONSPECIFIC ST & T-WAVE ABNORMALITY ABNORMAL RHYTHM ECG UNCONFIRMED REPORT Electronically signed by : Mian Benavidez MD 04/14/2022 08:26:39
--- NOTE | 2022-04-13 08:33 | PC.NURSE ---
at the bedside with pt. ekg being performed
[2022-04-13 08:37] LABS: Chloride 103 mmol/L (98-107); Potassium 3.5 mmoL/L (3.5-5.1); Sodium 136 mmol/L (136-145)
[2022-04-13 08:39] LABS: Blood Urea Nitrogen 4 mg/dl (7-17); Creatinine Clearance Estimated 128 mL/min (50-200); Estimated Glomerular Filt Rate 114 ml/min (>60); GFR (African American) 138 ML/MIN (>60)
[2022-04-13 08:40] LABS: Alanine Aminotransferase 34 U/L (12-78); Albumin/Globulin Ratio 1.1 (1.1-1.8); Alkaline Phosphatase 102 U/L (38-126); Anion Gap 10.5 mEq/L (5-15); Aspartate Amino Transferase 35 U/L (14-36); Bilirubin,Total 0.5 mg/dl (0.2-1.3); Calcium 9.3 mg/dl (8.4-10.2); Carbon Dioxide 26 mmol/L (22.0-30.0); Globulin 3.5 g/dL (1.3-3.2); Glucose 102 mg/dl (74-100); Total Protein,Serum 7.5 g/dl (6.3-8.2)
--- NOTE | 2022-04-13 08:41 | PC.NURSE ---
pt to ct via stretcher
--- NOTE | 2022-04-13 08:54 | PC.NURSE ---
pt returned from CT
[2022-04-13 09:08] LABS: Magnesium 1.7 mg/dl (1.6-2.3)
[2022-04-13 09:23] LABS: Creatine Kinase 31 U/L (30-135)
[2022-04-13 09:29] LABS: C-Reactive Protein 24.7 mg/L (0-4)
[2022-04-13 09:31] LABS: Erythrocyte Sedimentation Rate 16 mm/hr (0-20)
[2022-04-13 09:38] LABS: CKMB Relative Index 0.6 U/L (0-4.0); Creatine Kinase MB < 0.2 ng/ml (0.0-2.03); Troponin I < 0.01 ng/ml (0.00-0.034)
[2022-04-13 09:55] LABS: Free Thyroxine Index 2.6 ug/dL (5.93-13.13); T4 (Thyroxine) 8.3 ug/dl (5.53-11.0); Triiodothryronine (T3) Uptake 31 % (23.5-40.5)
--- NOTE | 2022-04-13 10:03 | PC.NURSE ---
speaking with Dr Oleary at this time, whom is covering for Dr Judd.
[2022-04-13 10:09] LABS: Thyroid Stimulating Hormone 1.05 uIU/mL (0.465-4.68)
--- NOTE | 2022-04-13 10:10 | PC.NURSE ---
spoke with pcp office and they stated since pt hasn't been seen since 2008 she would have to make a new pt appointment and would not be able to be seen as an existing. notified
--- NOTE | 2022-04-13 10:12 | PC.NURSE ---
per md request, talking to neurology for pt appointment
--- NOTE | 2022-04-13 10:16 | PC.NURSE ---
pt appointment scheduled with dr lugo
[2022-04-13 10:23] VITALS: BP 112/69; PULSE 87; RESP 18; O2SAT 97
--- NOTE | 2022-04-13 10:26 | PC.NURSE ---
Julia RN at discussing discharge instructions
[2022-04-13 10:29] VITALS: BP 112/69; PULSE 112; RESP 17; TEMP 36.8; O2SAT 98
== END 2022-04-13 10:30 | disposition home or self-care (01) ==
PROVIDERS: Emergency Medicine; Emergency Provider Emergency Medicine; PCP Family Medicine
DX: H53.2 Diplopia (principal); R53.1 Weakness; R20.0 Anesthesia of skin; R06.02 Shortness of breath
CPT/HCPCS: 36415; 70450; 71045; 80053; 81001; 81025; 82550; 82553; 83735; 84436; 84443; 84479; 84484; 85025; 85651; 86140; 93005; 99284

== ENCOUNTER 2022-06-08 10:08 | Emergency (ER) | payer MEDICAID, SELFPAY ==
--- NOTE | 2022-06-08 10:41 | HMH.EDUTC ---
[facility] Disposition Clinical Impression: Viral syndrome, Bronchitis, Exposure to COVID-19 virus Disposition: Home, Self-Care Condition on Discharge: Good Instructions: DI for COVID-19 (Suspected or Confirmed ), Preventing the Spread of Coronavirus Discharge Instructions Additional Instructions: Drink plenty of fluids. Take tylenol or ibuprofen for pain or fever. Take the medications as directed. Follow up with your regular doctor. GO TO THE ER FOR ANY WORSENING SYMPTOMS Quarantine until you know the results of your covid-19 test. Notify your school or workplace of your results and follow their instructions regarding return to work/school. Prescriptions: Ondansetron [Zofran 4mg ODT] 4 mg PO Q8HP PRN #12 tab PRN Reason: Nausea Transmission Status: Received by [facility] methylPREDNISolone [Medrol] 4 mg PO DIRECTED 6 Days #21 packet Transmission Status: Received by [facility] Azithromycin [Z-Dick 250mg Tab*] 250 mg PO UD DOSE PK #6 tab Transmission Status: Received by [facility] Referrals: Hliario Mack MD [Primary Care Provider] - Time of Disposition: 11:00 Medical Decision Making - Medical Records Medical records reviewed: No: I reviewed the patient's medical records. - Jim Inquiry Pt receiving controlled substance: No Vital Signs: 06/08/22 10:55 06/08/22 11:19 Temperature 98.2 F 98.2 F Temperature Source Oral Pulse Rate 104 H Pulse Rate [Left] 104 H Respiratory Rate 16 16 Blood Pressure 126/78 Blood Pressure [Right Arm] 126/78 Blood Pressure Mean [Right Arm] 94 02 Sat by Pulse Oximetry 96 [facility] HPI - General Stated complaint: congestion, fever, HARP, SOB, cough Time Seen by Provider: 06/08/22 10:41 - History of Present Illness Provider Complaint: She states that she has felt bad for the past 3 days. She has sinus congestion, sore throat, chest congestion and body aches. - Related Data Home Medications Medication Instructions Recorded Confirmed Omeprazole 20 mg PO DAILY 04/13/22 04/13/22 Previous Rx's Medication Instructions Recorded Azithromycin [Z-Dick 250mg Tab*] 250 mg PO UD DOSE PK #6 tab 06/08/22 Ondansetron [Zofran 4mg ODT] 4 mg PO Q8HP PRN #12 tab 06/08/22 methylPREDNISolone [Medrol] 4 mg PO DIRECTED 6 Days #21 06/08/22 packet Allergies Allergy/AdvReac Type Severity Reaction Status Date / Time coconut Allergy Unknown Verified 06/08/22 10:58 [From COCONUT (FOOD/DRUG)] [facility] History - Hepatitis A Screen Attestation statement:: This patient has been screened for Hepatitis A risk factors. I have reviewed the patient's past medical history: Yes Medical History: Reports:: Gastroesophageal Reflux Disease(GERD), Migraine Denies:: Aneurysm, Atrial Fibrillation, Cancer, Congestive Heart Failure, Diabetes Mellitus Type 1, Diabetes Mellitus Type 2, Hyperlipidemia, Hypertension, MRSA, Renal Disease, Renal Insufficiency Other Medical History: Reports: Arthritis, Other. Denies: Hypothyroidism, Thyroid Disease Laterality Cases: Bilateral: Tonsillectomy Other Surgeries: Yes: Cholecystectomy, Other Amputation: No Fractures: No (left ankle (x1), right ankle (x2), right wrist, left big toe) - Social History Smoking Status: Current every day smoker Tobacco Type: cigarettes # Packs/Day (cigarettes): 1 Alcohol Intake: never Alcohol Intake Frequency:: other Substance Use Type: denies use Occupational Status: other Family Hx:: Diabetes, Heart Attack, Stroke, Hyperlipidemia, Hypertension ROS Obtained: Yes All systems reviewed & no additional complaints - Constitutional Constitutional: Reports as per HPI - Eyes Eyes: Denies eye discharge - ENT Ears, Nose, Mouth, and Throat: Reports as per HPI - Cardiovascular Cardiovascular: Denies chest pain - Respiratory Respiratory: Reports chest congestion, Reports cough Physical Exam - General General appearance: alert, in no appare
[2022-06-08 10:55] VITALS: BP 126/78; PULSE 104; RESP 16; TEMP 36.8; O2SAT 96; BMI 41.3
[2022-06-08 11:19] VITALS: BP 126/78; PULSE 104; RESP 16; TEMP 36.8
== END 2022-06-08 11:20 | disposition home or self-care (01) ==
PROVIDERS: Emergency Provider Nurse Practitioner Family; PCP Emergency Medicine
DX: U07.1 COVID-19 (principal); J02.9 Acute pharyngitis, unspecified; R06.02 Shortness of breath; K21.9 Gastro-esophageal reflux disease without esophagitis; M79.10 Myalgia, unspecified site; M19.90 Unspecified osteoarthritis, unspecified site; G43.909 Migraine, unspecified, not intractable, without status migrainosus; Z79.52 Long term (current) use of systemic steroids; Z91.018 Allergy to other foods; Z82.49 Family history of ischemic heart disease and other diseases of the circulatory system; Z83.438 Family history of other disorder of lipoprotein metabolism and other lipidemia; Z83.3 Family history of diabetes mellitus
CPT/HCPCS: 99213; C9803; G0463; U0003; U0005

== ENCOUNTER → 2022-06-17 10:19 | Outpatient (CLI) | payer MEDICAID, SELFPAY ==
--- NOTE | 2022-06-17 10:19 | US_ITS ---
FINAL REPORT CLINICAL HISTORY: amenorrhea; obesity FINDINGS: Transvaginal sonographic images of the pelvis were obtained. The uterus measures 6.4 x 4.8 x 3.9 cm. The endometrium measures 7 mm, which is within normal limits. No uterine mass is identified. The right ovary measures 2.4 cm in length and left ovary measures 4.0 cm in length. The right ovary is suboptimally visualized. Normal blood flow seen to the ovaries. There are benign-appearing cysts or follicles on the left ovary. There is no evidence of free fluid. IMPRESSION: No acute abnormality identified. Reviewed, Interpreted and Dictated by Jose Fernandez MD Transcribed by Breanne John Authenticated and [facility]
== END ==
PROVIDERS: PCP Emergency Medicine; Visit Provider Obstetrics & Gynecology
DX: N91.2 Amenorrhea, unspecified (principal)
CPT/HCPCS: 76830

== ENCOUNTER → 2022-06-20 06:07 | Outpatient (CLI) | payer MEDICAID, SELFPAY ==
[2022-06-20 17:11] LABS: Basophils # 0.1 K/mm3 (0-0.2); Basophils % 0.5 % (0.1-2.0); Eosinophils # 0.1 K/mm3 (0.0-0.4); Eosinophils % 1.2 % (0.1-12.0); Hematocrit 56.6 % (37.0-47.0); Hemoglobin 17.2 g/dL (12.2-16.2); Lymphocytes # 3.3 K/mm3 (0.7-4.5); Lymphocytes % 30.3 % (10-50); Mean Corpuscular HGB Conc 30.5 g/dL (31.8-35.4); Mean Corpuscular Hemoglobin 29.8 pg (27.0-31.2); Mean Corpuscular Volume 97.9 fl (81-99); Mean Platelet Volume 9.9 fl (7.4-10.4); Monocytes # 0.8 K/mm3 (0.1-1.0); Monocytes % 7.6 % (1.7-9.3); Neutrophils # 6.6 K/mm3 (1.8-7.8); Neutrophils % 60.4 % (37.0-80.0); Platelet Count 314 K/mm3 (142-424); Red Blood Count 5.78 M/mm3 (4.20-5.40); Red Cell Distribution Width 13.9 % (11.5-17.5)
[2022-06-20 18:26] LABS: Alanine Aminotransferase 25 U/L (12-78); Albumin/Globulin Ratio 1.1 (1.1-1.8); Alkaline Phosphatase 130 U/L (38-126); Anion Gap 14.5 mEq/L (5-15); Aspartate Amino Transferase 27 U/L (14-36); Bilirubin,Total 0.8 mg/dl (0.2-1.3); Blood Urea Nitrogen 6 mg/dl (7-17); Calcium 9.5 mg/dl (8.4-10.2); Carbon Dioxide 25 mmol/L (22.0-30.0); Chloride 105 mmol/L (98-107); Estimated Glomerular Filt Rate 96 ml/min (>60); GFR (African American) 116 ML/MIN (>60); Globulin 3.6 g/dL (1.3-3.2); Glucose 106 mg/dl (74-100); Potassium 4.5 mmoL/L (3.5-5.1); Sodium 140 mmol/L (136-145); Total Protein,Serum 7.6 g/dl (6.3-8.2)
[2022-06-20 18:55] LABS: Thyroid Stimulating Hormone 1.21 uIU/mL (0.465-4.68)
[2022-06-20 19:13] LABS: Vitamin B12 198 pg/mL (239-931)
== END ==
PROVIDERS: PCP Family Medicine; Visit Provider Family Medicine
DX: R29.898 Other symptoms and signs involving the musculoskeletal system (principal)
CPT/HCPCS: 80053; 82607; 83036; 84443; 85025

== ENCOUNTER → 2022-06-28 10:08 | Outpatient (CLI) | payer MEDICAID, SELFPAY ==
[2022-06-28 11:47] LABS: Thyroid Stimulating Hormone 1.22 uIU/mL (0.465-4.68)
[2022-06-28 11:57] LABS: HCG,Quantitative < 2 mIU/ml (0-5.42)
[2022-06-29 08:56] LABS: Estradiol 21.2 pg/mL (.); Progesterone 0.4 ng/mL (.)
[2022-06-29 09:16] LABS: FSH 7.1 mIU/mL (.)
== END ==
PROVIDERS: PCP Emergency Medicine; Visit Provider Obstetrics & Gynecology
DX: N91.2 Amenorrhea, unspecified (principal)
CPT/HCPCS: 36415; 82670; 83001; 84144; 84443; 84702

== ENCOUNTER → 2022-06-29 07:10 | Outpatient (CLI) | payer MEDICAID, SELFPAY ==
--- NOTE | 2022-06-29 07:36 | MR_ITS ---
FINAL REPORT CLINICAL HISTORY: bilateral leg weakness x 6 months FINDINGS: MRI LUMBAR SPINE W/O CONTRAST Multiplanar MR imaging of the lumbar spine was performed without contrast. On the sagittal T2-weighted images, disc degeneration is seen at L5-S1. Note is made of several hemangiomas. Schmorl's nodes are also noted. The vertebral alignment is normal. There is no evidence of fracture. There is an 11 mm focus of increased T2 signal in the distal spinal cord at the L1 level. This is most worrisome for demyelination. A mass is felt less likely but not excluded. L1-2: No significant central canal stenosis or neural foraminal narrowing. L2-3: No significant central canal stenosis or neural foraminal narrowing. L3-4: No significant central canal stenosis or neural foraminal narrowing. L4-5: No significant central canal stenosis or neural foraminal narrowing. L5-S1: An annular disc bulge is present. There is a small central disc protrusion with mild left neural foraminal narrowing. IMPRESSION: 11 mm focus of increased T2 signal in the distal spinal cord at the L1 level. Most worrisome for demyelination, a mass is felt less likely but not excluded. This could be further evaluated with a follow-up MRI with contrast An attempt was made to report these findings to the ordering provider's office. The office was called and a message was left for the clinical catalyst supervisor to return my call on June 29, 2022 at 10:15 a.m. Reviewed, Interpreted and Dictated by Angelo Silveira III, MD Transcribed by Amanda Craven Authenticated and [facility]
== END ==
PROVIDERS: PCP Family Medicine; Visit Provider Family Medicine
DX: R29.898 Other symptoms and signs involving the musculoskeletal system (principal)
CPT/HCPCS: 72148; 76376

== ENCOUNTER → 2022-07-29 09:12 | Outpatient (CLI) | payer MEDICAID, SELFPAY ==
--- NOTE | 2022-07-29 09:12 | MR_ITS ---
FINAL REPORT CLINICAL HISTORY: with contrast only r/o ms headaches, dizziness, blurred vision tingling bilateral hand and arms 24ml prohance given FINDINGS: Multiplanar MR imaging of the cervical spine was performed without and with contrast. On the sagittal T2-weighted images, disc degeneration is seen at several levels. The vertebral alignment is normal. There is no evidence of fracture. No bony mass is identified. There are multiple foci of abnormal T2 signal within the beth, medulla and cervical cord. Largest focus in the cervical cord measures 11 mm in height at the C3-C4 level and shows contrast enhancement. Inferior to this is a focus measuring 6 mm at the C4-C5 level also showing contrast enhancement. A focus in the medulla measuring 4 mm shows contrast enhancement. These likely represent active demyelination. There are disc bulges at several levels. There is a right paracentral disc protrusion at C5-C6 that indents the thecal sac. There is no cord compression. There is no evidence of significant canal stenosis. IMPRESSION: Demyelination in the brainstem and cervical cord with several areas of active demyelination as described. Reviewed, Interpreted and Dictated by Angelo Silveira III, MD Transcribed by Azeem Vicente Authenticated and [facility]
== END ==
PROVIDERS: PCP Family Medicine; Visit Provider Family Medicine
DX: R29.898 Other symptoms and signs involving the musculoskeletal system (principal); G37.9 Demyelinating disease of central nervous system, unspecified; R20.0 Anesthesia of skin
CPT/HCPCS: 72156; 76376; A9576

== ENCOUNTER → 2022-08-02 09:50 | Outpatient (CLI) | payer MEDICAID, SELFPAY ==
--- NOTE | 2022-08-02 09:50 | MR_ITS ---
FINAL REPORT CLINICAL HISTORY: Possible MS r/o ms 24 prohance given to patient multiple localizers done due to patient kept moving during scan best images possible COMPARISON: June 29, 2022 FINDINGS: Multiplanar MR imaging of the lumbar spine was performed without and with contrast. On the sagittal T2-weighted images, disc degeneration is seen at several levels. There are several Schmorl's nodes. There are several hemangiomas. The vertebral alignment is normal. There is no evidence of fracture. Again seen is an 11 mm focus of abnormal signal in the cord at the L1 level that is stable from prior and consistent with demyelination. There is a small right paracentral disc protrusion at L5-S1 that contacts the right S1 nerve root. No abnormal contrast enhancement is identified. IMPRESSION: Stable focus of abnormal signal within the cord at L1 consistent with demyelination. Small right paracentral disc protrusion at L5-S1 contacts the right S1 nerve root. Reviewed, Interpreted and Dictated by Angelo Silveira III, MD Transcribed by Azeem Vicente Authenticated and [facility]
--- NOTE | 2022-08-02 09:50 | MR_ITS ---
FINAL REPORT CLINICAL HISTORY: with contrast only r/o ms 24 prohance given to patient multiple localizers done due to patient kept moving during scan best images possible FINDINGS: Multiplanar MR imaging of the thoracic spine was performed without and with contrast. On the sagittal T2-weighted images, disc degeneration is seen at multiple levels. There is no evidence of fracture. The vertebral alignment is normal. No bony mass is identified. There are questionable small foci of abnormal signal in the thoracic cord at the T2, T5-T6, and T7-T8 levels measuring less than 5 mm. These are best seen on series 10, image 10. There is no evidence of significant canal stenosis. On the axial images, annular bulges and small anterior osteophytes are seen at multiple levels. Multiple vertebral osteophytes are present. There is no evidence of disc protrusion. No significant canal stenosis is identified. On the postcontrast images, no abnormal contrast enhancement is identified. IMPRESSION: Questionable small foci of abnormal signal in the thoracic cord as described. Small areas of demyelination cannot be excluded. These could also be artifactual. No abnormal contrast enhancement identified. Reviewed, Interpreted and Dictated by Angelo Silveira III, MD Transcribed by Azeem Vicente Authenticated and . [facility]
== END ==
PROVIDERS: PCP Family Medicine; Visit Provider Family Medicine
DX: G37.9 Demyelinating disease of central nervous system, unspecified (principal); R20.0 Anesthesia of skin; R29.898 Other symptoms and signs involving the musculoskeletal system
CPT/HCPCS: 72157; 72158; 76376; A9576

== ENCOUNTER → 2022-08-04 12:20 | Outpatient (CLI) | payer MEDICAID, SELFPAY ==
--- NOTE | 2022-08-04 12:34 | MR_ITS ---
FINAL REPORT CLINICAL HISTORY: MS vs NMO FINDINGS: Multi planar MR imaging was obtained through the brain without contrast. The midline structures appear intact. There is no evidence of Chiari malformation. On T2 and flair axial images there is extensive abnormal signal in the periventricular white matter markedly abnormal for patient age. In limited images of the upper cervical cord is a central signal abnormality seen on image 6 of series 7. On diffusion-weighted images there is no evidence of restricted diffusion. There is extensive mucoperiosteal thickening in the left maxillary sinus. The seventh and eighth nerve root complexes are intact. IMPRESSION: Extensive signal abnormalities in the deep white matter and in the limited images of the upper cervical cord. Differentials would include multiple sclerosis or NMO. Reviewed, Interpreted and Dictated by Jose Fernandez MD Transcribed by Azeem Vicente Authenticated and [facility]
== END ==
PROVIDERS: PCP Emergency Medicine; Visit Provider Specialist
DX: G37.9 Demyelinating disease of central nervous system, unspecified (principal); R29.898 Other symptoms and signs involving the musculoskeletal system
CPT/HCPCS: 70551

== ENCOUNTER → 2022-08-05 09:59 | Outpatient (CLI) | payer MEDICAID, SELFPAY ==
[2022-08-05 10:44] LABS: Basophils # 0.1 K/mm3 (0-0.2); Basophils % 1.1 % (0.1-2.0); Eosinophils # 0.3 K/mm3 (0.0-0.4); Eosinophils % 2.6 % (0.1-12.0); Hematocrit 50.7 % (37.0-47.0); Hemoglobin 17.2 g/dL (12.2-16.2); Lymphocytes # 2.7 K/mm3 (0.7-4.5); Lymphocytes % 27.6 % (10-50); Mean Corpuscular HGB Conc 33.8 g/dL (31.8-35.4); Mean Corpuscular Hemoglobin 31.9 pg (27.0-31.2); Mean Corpuscular Volume 94.3 fl (81-99); Mean Platelet Volume 8.2 fl (7.4-10.4); Monocytes # 0.8 K/mm3 (0.1-1.0); Monocytes % 7.9 % (1.7-9.3); Neutrophils # 5.8 K/mm3 (1.8-7.8); Neutrophils % 60.7 % (37.0-80.0); Platelet Count 317 K/mm3 (142-424); Red Blood Count 5.38 M/mm3 (4.20-5.40); Red Cell Distribution Width 13.6 % (11.5-17.5); White Blood Count 9.6 K/mm3 (4.8-10.8)
[2022-08-05 11:19] LABS: Erythrocyte Sedimentation Rate 11 mm/hr (0-20)
[2022-08-05 11:27] LABS: Alanine Aminotransferase 18 U/L (12-78); Albumin/Globulin Ratio 1.1 (1.1-1.8); Alkaline Phosphatase 125 U/L (38-126); Anion Gap 14.9 mEq/L (5-15); Aspartate Amino Transferase 20 U/L (14-36); Bilirubin,Total 0.5 mg/dl (0.2-1.3); Blood Urea Nitrogen 14 mg/dl (7-17); Calcium 9.3 mg/dl (8.4-10.2); Carbon Dioxide 25 mmol/L (22.0-30.0); Chloride 102 mmol/L (98-107); Estimated Glomerular Filt Rate 114 ml/min (>60); GFR (African American) 138 ML/MIN (>60); Globulin 3.5 g/dL (1.3-3.2); Glucose 90 mg/dl (74-100); Potassium 3.9 mmoL/L (3.5-5.1); Sodium 138 mmol/L (136-145); Total Protein,Serum 7.5 g/dl (6.3-8.2)
[2022-08-05 12:29] LABS: Vitamin B12 214 pg/mL (239-931)
[2022-08-05 12:36] LABS: Folate 3.95 ng/mL
[2022-08-06 10:21] LABS: Rapid Plasma Reagin Ab Titer Non Reactive (NonRea<1:1)
[2022-09-07 09:11] LABS: Antinuclear Antibodies (ANA) NEGATIVE
== END ==
PROVIDERS: PCP Emergency Medicine; Visit Provider Specialist
DX: G37.8 Other specified demyelinating diseases of central nervous system (principal)
CPT/HCPCS: 36415; 80053; 82607; 82746; 85025; 85651; 86038; 86225; 86235; 86592

== ENCOUNTER 2022-08-09 13:15 | Day surgery (SDC) | payer MEDICAID, SELFPAY ==
[2022-08-09 13:53] VITALS: BP 136/94; PULSE 95; RESP 18; TEMP 36.5; O2SAT 99; BMI 39.6
[2022-08-09 14:19] VITALS: BP 155/89; PULSE 82; RESP 18; O2SAT 98
--- NOTE | 2022-08-09 14:49 | EXP.PAIN.PRO ---
Procedure Date: 08/09/22 Time: 14:30 Anesthesiologist:: Ajit Curran CRNA Complications:: None Pre-procedure Diagnosis:: The suspect demyelinating disorder Post-procedure Diagnosis:: Same Indications for Procedure:: Patient is a 37-year-old female that comes our clinic today for lumbar puncture for CSF analysis as well as opening closing pressure. Patient having symptoms of multiple sclerosis. Procedure Details:: Details of the procedure explained the patient. The patient taken the procedure room placed in the lateral position. The area of the lumbar spine was cleaned using chlorhexidine as a cleansing solution. Using a 22-gauge 3-1/2 inch needle the subarachnoid space was accessed at the L4-5 level. Opening pressure is 13. CSF was noted is minimal flow. 5 to 6 cc total was collected in 4 different vials in order 1 through 4. Closing pressure was 10. Patient tolerated procedure without difficulty. There are no complications. Plan and Disposition:: Patient was discharged with instructions for lying flat for 3 hours after arriving at home.
[2022-08-09 14:50] VITALS: BP 133/99; PULSE 82; RESP 18; O2SAT 96
[2022-08-09 15:06] LABS: Appearance,CSF Clear (Clear); Volume,CSF 2.5 mL
[2022-08-09 15:18] LABS: Red Blood Cell,CSF 0 cells/uL (0); White Blood Cell,CSF 0 cells/uL (0-5)
[2022-08-09 15:38] LABS: Glucose,CSF 55 mg/dl (40-70)
[2022-08-09 16:22] LABS: Appearance,CSF Clear (Clear); Mononuclear WBCs,CSF 14 %; Polynuclear WBCs,CSF 4 %; Red Blood Cell,CSF 106 cells/uL (0); Volume,CSF 2.5 mL; White Blood Cell,CSF 22 cells/uL (0-5)
[2022-08-09 16:23] LABS: Mononuclear WBCs,CSF 4 %; Polynuclear WBCs,CSF 2 %
[2022-08-11 17:58] LABS: Angiotensin Converting Enzyme 25 U/L (14-82)
[2022-08-12 15:21] LABS: CAP Mandated Reflex to Culture Not Indicated (.); Cryptococcus Antigen, CSF Negative (Negative)
== END 2022-08-09 14:50 | disposition home or self-care (01) ==
LOC: SC.PAINP 13:20
PROVIDERS: Specialist; PCP Family Medicine; Visit Provider Nurse Anesthetist, Certified Registered
DX: G37.9 Demyelinating disease of central nervous system, unspecified (principal); Z72.0 Tobacco use
CPT/HCPCS: 62328; 82040; 82042; 82164; 82784; 82945; 83916; 84155; 86592; 87070; 87102; 87116; 87205; 87206; 87476; 87899; 89051

== ENCOUNTER 2022-08-12 08:20 | Outpatient (CLI) | payer MEDICAID, SELFPAY ==
[2022-08-12 09:35] VITALS: BP 118/72; PULSE 67; RESP 18; O2SAT 97
[2022-08-12 10:20] VITALS: BP 116/59; PULSE 71; RESP 16
== END 2022-08-12 10:40 | disposition home or self-care (01) ==
LOC: INF 08:20
PROVIDERS: PCP Family Medicine; Visit Provider Specialist
DX: G37.9 Demyelinating disease of central nervous system, unspecified (principal)
CPT/HCPCS: 96365

== ENCOUNTER 2022-08-13 08:28 | Outpatient (CLI) | payer MEDICAID, SELFPAY ==
[2022-08-13 09:37] VITALS: BMI 51.0
--- NOTE | 2022-08-13 09:37 | PC.NURSE ---
Unable to flush IV to STACIE. IV removed and catheter was kinked. Tip was intact; no s/s of infection/infiltration at insertion site. New 22g IV to RFA started by Katey Fischer RN with 1 stick. Pt tolerated well.
== END 2022-08-13 09:59 | disposition home or self-care (01) ==
LOC: INF 08:29
PROVIDERS: PCP Family Medicine; Visit Provider Specialist
DX: G37.9 Demyelinating disease of central nervous system, unspecified (principal)
CPT/HCPCS: 96365

== ENCOUNTER 2022-08-14 08:18 | Outpatient (CLI) | payer MEDICAID, SELFPAY ==
[2022-08-14 08:33] VITALS: BP 132/78; PULSE 69; RESP 18; TEMP 36.8; O2SAT 97; BMI 51.0
--- NOTE | 2022-08-14 08:51 | PC.NURSE ---
Care provided by Shanad Gilliam RN
== END 2022-08-14 09:30 | disposition home or self-care (01) ==
PROVIDERS: PCP Family Medicine; Visit Provider Specialist
DX: G37.9 Demyelinating disease of central nervous system, unspecified (principal)
CPT/HCPCS: 96365

== ENCOUNTER 2022-08-19 13:20 | Day surgery (SDC) | payer MEDICAID, SELFPAY ==
[2022-08-19 13:53] VITALS: BP 112/78; PULSE 85; RESP 18; TEMP 36.4; O2SAT 95; BMI 39.1
[2022-08-19 13:54] VITALS: BP 124/83; PULSE 74; RESP 18; O2SAT 98
[2022-08-19 13:56] VITALS: BP 124/83; PULSE 74; O2SAT 99
[2022-08-19 14:16] VITALS: BP 112/79; PULSE 74; RESP 20; O2SAT 96
--- NOTE | 2022-08-19 15:37 | EXP.PAIN.PRO ---
Procedure Date: 08/19/22 Time: 15:37 Anesthesiologist:: Greg Pearson MD Complications:: None Pre-procedure Diagnosis:: Headache with suspected demyelinating disorder and symptoms of multiple sclerosis Post-procedure Diagnosis:: Same Indications for Procedure:: This patient is a pleasant 37-year-old white female who we are seeing as a referral from Dr. Landa. She is wanting a diagnostic lumbar puncture to obtain spinal fluid to send off for indicated studies. Procedure Details:: Lumbar puncture under fluoroscopy Informed consent was obtained risk and benefits of the procedure were explained to the patient. Patient was taken the procedure room. The patient was placed in left lateral decubitus position. The she was prepped with ChloraPrep. C-arm fluoroscopy was used to view the lumbar spine in a AP view. The skin and subtenons tissues were anesthetized using lidocaine. A 20-gauge spinal needle was inserted and advanced into the L4-5 interspace until clear CSF obtained. After this we placed approximately 5 mls of clear CSF into each tube. A total of 4 tubes were collected with a total of 20 mL of clear CSF. The needle was removed Band-Aid was placed. The patient tolerated the procedure well with no complications. CSF was sent for indicated studies. Plan and Disposition:: We will follow-up with this patient as needed. Thank you for the consult
[2022-08-19 16:26] LABS: Appearance,CSF Clear (Clear)
[2022-08-19 16:27] LABS: Volume,CSF 17 mL; White Blood Cell,CSF 1 cells/uL (0-5)
[2022-08-19 16:28] LABS: Red Blood Cell,CSF 13 cells/uL (0)
[2022-08-19 16:49] LABS: Glucose,CSF 60 mg/dl (40-70)
[2022-08-19 17:41] LABS: Mononuclear WBCs,CSF 0 %; Polynuclear WBCs,CSF 0 %
== END 2022-08-19 14:18 | disposition home or self-care (01) ==
LOC: SC.PAINP 13:20
PROVIDERS: PCP Specialist; Visit Provider Anesthesiology
DX: R51.9 Headache, unspecified (principal); R53.1 Weakness; H53.2 Diplopia
CPT/HCPCS: 62328; 82945; 84155; 89051

== ENCOUNTER 2022-09-23 12:04 | Emergency (ER) | payer MEDICAID, SELFPAY ==
[2022-09-23 13:16] VITALS: BP 158/92; PULSE 93; RESP 18; TEMP 36.8; O2SAT 97; BMI 32.8
[2022-09-23 13:45] VITALS: BP 138/90; PULSE 79; RESP 20; O2SAT 97
--- NOTE | 2022-09-23 14:41 | PC.NURSE ---
PT SO came pushing her in a w/c out of the room and spoke with Jamal about going outside. Jamal advised this was a non-smoking facility and as an ED pt they could not leave the department. Pt became upset and asked how much longer it would be before she seen a MD. Advised pt ED volume was increased at this time and MD was reviewing charts and would be with her as soon as he could. PT became upset and decided she was going to leave without being seen at this time.
[2022-09-23 14:46] VITALS: BP 0/0; PULSE 79; RESP 20; TEMP 36.8; O2SAT 98
== END 2022-09-23 14:50 | disposition left against medical advice (07) ==
LOC: UTC 13:10 → ER 13:10
PROVIDERS: Emergency Provider Emergency Medicine; PCP Family Medicine
DX: Z53.21 Procedure and treatment not carried out due to patient leaving prior to being seen by health care provider (principal)

== ENCOUNTER → 2022-11-22 11:55 | Outpatient (CLI) | payer MEDICAID, SELFPAY ==
[2022-11-22 15:49] LABS: Basophils # 0.1 K/mm3 (0-0.2); Basophils % 1.2 % (0.1-2.0); Eosinophils # 0.2 K/mm3 (0.0-0.4); Eosinophils % 2.9 % (0.1-12.0); Hematocrit 48.8 % (37.0-47.0); Hemoglobin 15.7 g/dL (12.2-16.2); Lymphocytes % 23.8 % (10-50); Mean Corpuscular HGB Conc 32.2 g/dL (31.8-35.4); Mean Corpuscular Hemoglobin 31.1 pg (27.0-31.2); Mean Corpuscular Volume 96.7 fl (81-99); Mean Platelet Volume 8.7 fl (7.4-10.4); Monocytes # 0.6 K/mm3 (0.1-1.0); Monocytes % 6.6 % (1.7-9.3); Neutrophils # 5.4 K/mm3 (1.8-7.8); Neutrophils % 65.5 % (37.0-80.0); Platelet Count 298 K/mm3 (142-424); Red Blood Count 5.05 M/mm3 (4.20-5.40); Red Cell Distribution Width 13.5 % (11.5-17.5); White Blood Count 8.3 K/mm3 (4.8-10.8)
[2022-11-22 16:16] LABS: Chloride 106 mmol/L (98-107); Potassium 3.8 mmoL/L (3.5-5.1); Sodium 141 mmol/L (136-145)
[2022-11-22 16:19] LABS: Alanine Aminotransferase 11 U/L (12-78); Albumin Level 4.1 g/dl (3.5-5.0); Albumin/Globulin Ratio 1.4 (1.1-1.8); Alkaline Phosphatase 82 U/L (38-126); Anion Gap 10.8 mEq/L (5-15); Aspartate Amino Transferase 15 U/L (14-36); Bilirubin,Total 0.4 mg/dl (0.2-1.3); Blood Urea Nitrogen 9 mg/dl (7-17); Calcium 8.9 mg/dl (8.4-10.2); Carbon Dioxide 28 mmol/L (22.0-30.0); Estimated Glomerular Filt Rate 114 ml/min (>60); GFR (African American) 138 ML/MIN (>60); Glucose 86 mg/dl (74-100); Total Protein,Serum 7.1 g/dl (6.3-8.2)
[2022-11-24 12:02] LABS: Hep B Core Ab, Total Negative (Negative); Hep B Surface Ab, Qual Non Reactive (.); Hepatitis B Core Antibody IgM Negative (Negative)
[2022-11-26 05:29] LABS: Hepatitis B Surface Antigen Negative
== END ==
PROVIDERS: PCP Family Medicine; Visit Provider Psychiatry & Neurology Neurology
DX: G37.9 Demyelinating disease of central nervous system, unspecified (principal)
CPT/HCPCS: 36415; 80053; 85025; 86704; 86706; 87340

== ENCOUNTER 2022-12-27 12:01 | Outpatient (CLI) | payer MEDICAID, SELFPAY ==
[2022-12-27 12:26] VITALS: BP 124/72; PULSE 78; RESP 18; TEMP 36.3; O2SAT 99
[2022-12-27 12:52] VITALS: BP 120/79; PULSE 76; RESP 18; O2SAT 99
[2022-12-27 13:35] VITALS: BP 146/79; PULSE 75; RESP 18; O2SAT 99
== END 2022-12-27 13:35 | disposition home or self-care (01) ==
LOC: INF 12:02
PROVIDERS: PCP Family Medicine; Visit Provider Specialist
DX: G35 Multiple sclerosis (principal); G43.909 Migraine, unspecified, not intractable, without status migrainosus
CPT/HCPCS: 96365

== ENCOUNTER 2022-12-28 09:12 | Outpatient (CLI) | payer MEDICAID, SELFPAY ==
[2022-12-28 09:30] VITALS: BP 124/76; PULSE 84; RESP 18; TEMP 36.3; O2SAT 96
[2022-12-28 09:59] VITALS: BP 121/79; PULSE 81; RESP 18; O2SAT 96
[2022-12-28 10:40] VITALS: BP 129/74; PULSE 78; RESP 18; O2SAT 97
== END 2022-12-28 10:45 | disposition home or self-care (01) ==
LOC: INF 09:12
PROVIDERS: PCP Family Medicine; Visit Provider Specialist
DX: G35 Multiple sclerosis (principal); G43.909 Migraine, unspecified, not intractable, without status migrainosus
CPT/HCPCS: 96365

== ENCOUNTER 2022-12-29 09:48 | Outpatient (CLI) | payer MEDICAID, SELFPAY ==
[2022-12-29 10:05] VITALS: BP 138/65; PULSE 70; RESP 20; TEMP 36.4; O2SAT 98
[2022-12-29 10:34] VITALS: BP 111/69; PULSE 79; RESP 20; O2SAT 97
[2022-12-29 11:20] VITALS: BP 107/83; PULSE 81; RESP 18; O2SAT 97
== END 2022-12-29 11:20 | disposition home or self-care (01) ==
LOC: INF 09:49
PROVIDERS: PCP Family Medicine; Visit Provider Specialist
DX: G35 Multiple sclerosis (principal); G43.909 Migraine, unspecified, not intractable, without status migrainosus
CPT/HCPCS: 96365

== ENCOUNTER 2023-02-03 08:00 | Outpatient (RCR) | payer MEDICAID, SELFPAY ==
--- NOTE | 2022-08-18 16:26 | HMH.OTOPEV ---
OT Inpatient Evaluation Rehab OT Outpatient Eval Start: 08/18/22 15:57 Freq: Status: Active Protocol: Document 08/18/22 15:58 RMSORAYA (Rec: 08/18/22 16:26 RMSORAYA [id number]) E-signed By Katiana John, OT Outpatient Therapy Subjective History Subjective History Pt is 37 yowf who presents with insidious onset of general weakness, uncoordinated movements, and paresthesia ~ 6 mos ago. Initially these symptoms were only in LE's. However, 3-4 weeks ago she started experiencing these symtpoms in bialteral UE's as well. She reports symptoms have gradually worsened to the point where she must have assistance with all mobility, ADLs, and even feeding. She is dependent upon her for completing of dressing, bathing, and feeding. She does not experience pain but constant numbness/tingling from neck down. She presents with decreased fine motor control and coordination. She is unable to complete fine motor tasks such as buttoning, fastening, or writing her name. Pt is right hand dominant. Pt's R UE appears to be the most affected with coordination, strength, and precision. She also reports generally decreased endurance and new exertional SOA. Pt has full AROM at shoulder, elbow, wrist, and digits. However, strength is limited. MRI was performed ~ 2 weeks ago which showed multiple area of white matter changes throughout the brain and spinal cord. Pt reports no significant PMH. Short Term Goals: 4/5 throughout B/L shoulders 4/5 throughout B/L elbows 4-,3+ throughout B/L wrists L
--- NOTE | 2022-09-20 09:53 | HMH.RHREAS ---
Rehab Reassessment Rehab OP Re-assessment Start: 09/20/22 08:56 Freq: Status: Active Protocol: Document 09/20/22 08:56 YAQUELIN (Rec: 09/20/22 09:53 RMEDWARHALL [id number]) E-signed By Katiana John OT Rehab Re-assessment Subjective Subjective I was a little tired after this weekend. Objective Objective Notes Pt continues to be seen twice a week in order to address bilateral UE strengthening and coordination. At this time, pt continues to be co-treated with physical therapy due to decreased endurance. Each session, pt engages in bilateral UE fine motor activities, strengthening, coordination activities, and visual scanning. Balance and ambulation are also addressed with physical therapy. Assessment Progress Assessment Progressing as Expected Assessment Notes Pt demonstrates good improvement with bialteral UE function since starting therapy. She is now able to grasp a variety size objects, especially small pegs. Her right side continues to be the weaker side, but is demonstrating improved strength. Pt's coordination has improved as well. She is now able to catch and throw a tennis ball and complete a large peg board. Originally, she required hand over hand assistance to complete large peg board, but now she is able to complete it independently. She is also showing improvement with her pincer grasp when picking up small pegs. She can now pinch them with bilateral hands and move them across midline to drop into a container. However, she still does not have the coordination to place them into a small peg board. Therap
--- NOTE | 2022-10-25 08:57 | HMH.RHREAS ---
Rehab Reassessment Rehab OP Re-assessment Start: 09/20/22 08:56 Freq: Status: Active Protocol: Document 10/25/22 07:59 RMARSHALL (Rec: 10/25/22 08:57 RMARSHALL [id number]) E-signed By Katiana John OT Rehab Re-assessment Subjective Subjective I have been working at everything on my own. Objective Objective Notes Pt continues to be seen twice a week in order to address bilateral UE strengthening and coordination. At this time, pt continues to be co-treated with physical therapy due to decreased endurance. Each session, pt engages in bilateral UE fine motor activities, strengthening, coordination activities, and visual scanning. Balance and ambulation are also addressed with physical therapy. Assessment Progress Assessment Progressing as Expected Assessment Notes Pt has not been seen for 25 days due to illness and weather conditions. However, pt continues to demonstrate improvement with bilateral UE coordination and strength.. She is now able to grasp a variety size objects. She is able to utilize a pincer grasp with bilateral hands to pickling operator objects as small as a aspen . Today, she was able to lace 1 inch beads with the correct coordination and fine motor control. Originally, she required hand over hand assistance to complete large peg board, but now she is able to complete it independently. Pt's handwriting has improved tremndously. She is able to write her first and last name with correct letter fromation, legibility, and correct line awarness ~50% of the time. She is very positive and engaged in therapy. She also completes
--- NOTE | 2022-12-07 08:59 | HMH.RHREAS ---
Rehab Reassessment Rehab OP Re-assessment Start: 09/20/22 08:56 Freq: Status: Active Protocol: Document 12/07/22 07:53 RMARSHALL (Rec: 12/07/22 08:59 RMARSHALL [id number]) E-signed By Katiana John OT Rehab Re-assessment Subjective Subjective I've got a lot of news. Objective Objective Notes Pt continues to be seen twice a week in order to address bilateral UE strengthening and coordination. At this time, pt continues to be co-treated with physical therapy due to decreased endurance. Each session, pt engages in bilateral UE fine motor activities, strengthening, coordination activities, and visual scanning. Balance and ambulation are also addressed with physical therapy. Assessment Progress Assessment Progressing as Expected Assessment Notes Pt has not been seen for 18 days because she had oral surgery removing all teeth. Pt explains she now has an official diagnosis from Neuro of Relapsing Remitting Multiple Sclerosis. Neurology plans to make appropriate medication adjustments. Pt continues to demonstrate improvement with bilateral UE coordination and strength. She continues to be able to grasp a variety size objects. She is able to utilize a pincer grasp with bilateral hands to pharmacy picking technician objects as small as a aspen and small pegs. She is also able to place the small pegs into a peg board now, which she could not do at the beginning of therapy. Originally, she required hand over hand assistance to complete large peg board. Pt's handwriting has improved tremndously. She is able to write her first and last name with correct
--- NOTE | 2023-01-06 08:57 | HMH.RHREAS ---
Rehab Reassessment Rehab OP Re-assessment Start: 09/20/22 08:56 Freq: Status: Active Protocol: Document 01/06/23 08:11 YAQUELIN (Rec: 01/06/23 08:[facility] [id number][facility] E-signed By Katiana John OT Rehab Re-assessment Subjective Subjective I can completely dress myself and shower myself. Objective Objective Notes Pt continues to be seen twice a week in order to address bilateral UE strengthening and coordination. At this time, pt continues to be co-treated with physical therapy due to decreased endurance. Each session, pt engages in bilateral UE fine motor activities, strengthening, coordination activities, and visual scanning. Balance and ambulation are also addressed with physical therapy. Assessment Progress Assessment Progressing as Expected Assessment Notes Pt has been more consistent about attending therapy sessions since last re- assessment. Pt continues to demonstrate improvement with bilateral UE coordination and strength. She continues to be able to grasp a variety size objects. She is able to utilize a pincer grasp with bilateral hands to pear picker objects as small as a aspen and small pegs. She is also able to place the small pegs into a peg board now, which she could not do at the beginning of therapy. She is also now able to button a shirt with 1/2 inch buttons independently. She has been addressing other enjoyable ADLs in therapy such as painting her nails She is able to write her first and last name with correct letter fromation, legibility, and correct line awarness ~50% of the time. Her grap has
== END 2023-02-03 08:57 | disposition home or self-care (01) ==
LOC: OT 08:00
PROVIDERS: PCP Family Medicine; Visit Provider Specialist
DX: G37.9 Demyelinating disease of central nervous system, unspecified (principal); R26.89 Other abnormalities of gait and mobility; R53.1 Weakness
CPT/HCPCS: 97110; 97164; 97167; 97530

== ENCOUNTER 2023-02-03 08:00 | Outpatient (RCR) | payer MEDICAID, SELFPAY ==
--- NOTE | 2022-08-11 14:31 | HMH.PTOPEV ---
PT Outpatient Evaluation Rehab PT Outpatient Evaluation Start: 08/11/22 13:06 Freq: Status: Active Protocol: Document 08/11/22 14:04 DOROTA (Rec: 08/11/22 14:31 PHOERICK [id number]) E-signed By Anthony Navarrete, PT Outpatient Therapy Subjective History Subjective History Pt is 37 yowf who presents with insidious onset of general weakness, uncoordinated movements, and paresthesia ~ 6 mos ago. She reports symptoms have gradually worsened to the point where she must have assistance with all mobility, ADLs, and even feeding. She reports no c/o pain at this time, but does state, TodayI' m tingling everywhere, even my belly. She presents with obvious ataxic gait as well. She also reports generally decreased endurance and new exertional SOA. MRI was performed ~ 1 wk ago which showed multiple area of white matter changes throughout the brain and spinal cord. Pt reports no significant PMH. Chief Complaint Paresthesia,Weakness,Decreased Coordination Symptom Type Tingling Symptoms Relieved By Nothing Symptoms Aggravated By Physical Activity Prior Functional Limitations None Current Functional Limitations Reaching,Lifting,Housework, Dressing,Desk Work/Reading, Driving,Sleeping,Standing, Sitting,Squatting,Recreation Activity,Walking,Stairs, Balance,Bending/Stooping Symptom Description Constant and Continuous Level of pain today (0-10) 0 Shoulder/Elbow Eval Shoulder Objective Measurements Shoulder ROM Bilateral full ROM shoulder exam standard bilateral Shoulder MMT Left Shoulder Abduction Strength Grade 4 Good Shoulder Flexion Strength Grade 5 Normal Shoulder External Rotation Strength 4 Good Grade Shoulder Internal Rotation Strength 5 Normal Grade Right Shoulder Abduction Strength Grade 4 Good Shoulder Flexion Strength Grade 4 Good Shoulder External Rotation Strength 4 Good Grade Shoulder Internal Rot
--- NOTE | 2022-09-09 10:12 | HMH.RHREAS ---
Rehab Reassessment Rehab OP Re-assessment Start: 09/09/22 10:08 Freq: Status: Active Protocol: Document 09/09/22 10:09 DOROTA (Rec: 09/09/22 10:12 PHOERICK [id number]) E-signed By Anthony Navarrete, PT Rehab Re-assessment Subjective Subjective Pt reports, I feel OK today, nothing is hurting, but I have pins and needles all over my arms and legs still. Objective Objective Notes B SHLD MMT: FLEX 4+/5, ABD 4+/ 5, ER 4+/5 R HIP MMT: FLEX 4+/5, EXT 4+/5 . TU sec Gait: Increased R genu recurvatum during stance phase when fatigued. Assessment Progress Assessment Progressing as Expected Assessment Notes Continues to improve gait pattern with longer stride length. Overall endurance has improved considerably, but she continues to require multiple rest periods during treatments. Strength has improved, but she remains weak globally and worse on R side vs L. Patient goals met ST,2,3,4,5,6 Goals Not Met LT,2,3,4,5,6,7,8,9 Revised Goals none Plan Plan Continue per initial POC Frequency of Therapy 2-3 x/wk Duration of therapy 4 wks Time and Billing Re-Eval Time 15 Re-Eval Billing Units 1 PHYSICIAN CERTIFICATION: I certify the specified therapy services for Lo David are required, authorized, and reviewed every 30 days.
--- NOTE | 2022-10-25 08:54 | HMH.RHREAS ---
Rehab Reassessment Rehab OP Re-assessment Start: 09/09/22 10:08 Freq: Status: Active Protocol: Document 10/25/22 08:49 DOROTA (Rec: 10/25/22 08:53 PHOERICK [id number]) E-signed By Anthony Navarrete, PT Rehab Re-assessment Subjective Subjective Pt reports she feels good today, unable to come for therapy for several weeks due to weather and illness. Objective Objective Notes B SHLD MMT: FLEX 4+/5, ABD 4+/ 5, ER 4+/5 R HIP MMT: FLEX 4+/5, EXT 4+/5 , ABD 4/5 TU sec Gait: Continued R genu recurvatum during stance phase when fatigued. Increased arm swing during gait B. Assessment Progress Assessment Progressing as Expected Assessment Notes Pt continues to exhibit decreased muscle endurance with strengthening, likely due to decreased neurologic input . Continues to improve gait and strength steadily. Patient goals met ST,2,3,4,5,6 Goals Not Met LT,2,3,4,5,6,7,8,9 Revised Goals none Plan Plan Continue per initial POC Frequency of Therapy 2-3 x/wk Duration of therapy 4 wks Time and Billing Re-Eval Time 15 Re-Eval Billing Units 1 PHYSICIAN CERTIFICATION: I certify the specified therapy services for Lo David are required, authorized, and reviewed every 30 days.
--- NOTE | 2022-12-07 09:50 | HMH.RHREAS ---
Rehab Reassessment Rehab OP Re-assessment Start: 09/09/22 10:08 Freq: Status: Active Protocol: Document 12/07/22 08:57 DOROTA (Rec: 12/07/22 09:02 DOROTA [id number]) E-signed By Anthony Navarrete, PT Rehab Re-assessment Subjective Subjective Pt reports, I finally have a diagnosis of MS for sure, but they said its the kind that will come and go. Objective Objective Notes R HIP MMT: FLEX 4+/5, EXT 4+/5 , ABD 5/5, ADD 5/5. R KNEE MMT: FLEX 5/5, EXT 5/5 Dynamic Gait Index (DGI): TU sec Gait: Continued R genu recurvatum during stance phase when fatigued. Increased arm swing during gait B. Assessment Progress Assessment Progressing as Expected Assessment Notes Pt continues to steadily improve strength throughotu B LE. Coordination needs to improve and endurance is increased, but remains low. Much improved gait and dynamic standing balance. Improving steadily, but continues to need skilled therapy. Patient goals met ST,2,3,4,5,6 Goals Not Met LT,2,3,4,5,6,7,8,9 Revised Goals none Plan Plan Continue per initial POC Frequency of Therapy 2-3 x/wk Duration of therapy 4 wks Time and Billing Re-Eval Time 14 Re-Eval Billing Units 1 PHYSICIAN CERTIFICATION: I certify the specified therapy services for Lo David are required, authorized, and reviewed every 30 days.
--- NOTE | 2023-01-06 12:03 | HMH.RHREAS ---
Rehab Reassessment Rehab OP Re-assessment Start: 09/09/22 10:08 Freq: Status: Active Protocol: Document 01/06/23 12:00 PHOERICK (Rec: 01/06/23 12:03 PHORMYRA [id number]) E-signed By Anthony Navarrete PT Rehab Re-assessment Subjective Subjective Pt reports she begins her medication for MS next week. Otherwise no new problems or news. Objective Objective Notes R HIP MMT: FLEX 4+/5, EXT 4+/5 , ABD 5/5, ADD 5/5. R KNEE MMT: FLEX 5/5, EXT 5/5 Dynamic Gait Index (DGI): Assessment Progress Assessment Progressing as Expected Assessment Notes Continues to show mild unccordinated movements, but strength is much improved overall. She has shown significant improvements in gait pattern overall with only minimal R LE genu recurvatum during stance phase this date. She continues to require multiple rest periods during treatment due to muscle fatigue, but is also improving in that area. Skilled therapy continues to be required to reach all functional goals and return to full independence with all ADLs. Patient goals met ST,2,3,4,5,6 Goals Not Met LT,2,3,4,5,6,7,8,9 Revised Goals none Plan Plan Continue per initial POC Frequency of Therapy 1-2 x/wk Duration of therapy 4 wks Time and Billing Re-Eval Time 15 Re-Eval Billing Units 1 PHYSICIAN CERTIFICATION: I certify the specified therapy services for Lo David are required, authorized, and reviewed every 30 days.
== END 2023-02-03 08:05 | disposition home or self-care (01) ==
LOC: PT 08:00
PROVIDERS: PCP Family Medicine; Visit Provider Specialist
DX: G37.8 Other specified demyelinating diseases of central nervous system (principal)
CPT/HCPCS: 97110; 97112; 97163; 97164; 97530

== ENCOUNTER → 2023-02-17 11:45 | Outpatient (CLI) | payer MEDICAID, SELFPAY ==
[2023-02-17 12:17] LABS: Basophils # 0.1 K/mm3 (0-0.2); Basophils % 0.9 % (0.1-2.0); Eosinophils # 0.3 K/mm3 (0.0-0.4); Eosinophils % 3.8 % (0.1-12.0); Hematocrit 45.3 % (37.0-47.0); Hemoglobin 14.6 g/dL (12.2-16.2); Lymphocytes # 1.9 K/mm3 (0.7-4.5); Mean Corpuscular HGB Conc 32.3 g/dL (31.8-35.4); Mean Corpuscular Hemoglobin 30.4 pg (27.0-31.2); Mean Corpuscular Volume 94.1 fl (81-99); Mean Platelet Volume 7.6 fl (7.4-10.4); Monocytes # 0.6 K/mm3 (0.1-1.0); Monocytes % 7.2 % (1.7-9.3); Neutrophils # 5.8 K/mm3 (1.8-7.8); Neutrophils % 66.2 % (37.0-80.0); Platelet Count 353 K/mm3 (142-424); Red Blood Count 4.82 M/mm3 (4.20-5.40); Red Cell Distribution Width 14.4 % (11.5-17.5); White Blood Count 8.8 K/mm3 (4.8-10.8)
[2023-02-17 13:02] LABS: Alanine Aminotransferase 19 U/L (12-78); Albumin Level 3.9 g/dl (3.5-5.0); Albumin/Globulin Ratio 1.3 (1.1-1.8); Alkaline Phosphatase 97 U/L (38-126); Anion Gap 11.6 mEq/L (5-15); Aspartate Amino Transferase 19 U/L (14-36); Bilirubin,Total 0.5 mg/dl (0.2-1.3); Blood Urea Nitrogen 15 mg/dl (7-17); Carbon Dioxide 29 mmol/L (22.0-30.0); Chloride 104 mmol/L (98-107); Estimated Glomerular Filt Rate 95 ml/min (>60); GFR (African American) 115 ML/MIN (>60); Globulin 2.9 g/dL (1.3-3.2); Glucose 93 mg/dl (74-100); Potassium 4.6 mmoL/L (3.5-5.1); Sodium 140 mmol/L (136-145); Total Protein,Serum 6.8 g/dl (6.3-8.2)
[2023-02-17 13:17] LABS: HCG,Quantitative < 2 mIU/ml (0-5.42)
== END ==
PROVIDERS: PCP Family Medicine; Visit Provider Obstetrics & Gynecology
DX: Z30.09 Encounter for other general counseling and advice on contraception (principal)
CPT/HCPCS: 36415; 80053; 84702; 85025

== ENCOUNTER 2023-02-23 06:14 | Day surgery (SDC) | payer MEDICAID, SELFPAY ==
[2023-02-21 13:10] VITALS: BMI 45.1
[2023-02-23] VITALS (11 sets, daily range): BP systolic 121–162; BP diastolic 77–95; PULSE 72–92; RESP 12–20; TEMP 36.1–43; O2SAT 90–95
--- NOTE | 2023-02-23 07:21 | EXP.ANES.CKL ---
[facility] Disclaimer: The information contained in this section may have been updated after the patient was seen, as this information can be updated by other users. Medical History Asthma Generalized anxiety disorder GERD (gastroesophageal reflux disease) Major depressive disorder Migraine Multiple sclerosis Surgical History History of cholecystectomy History of tonsillectomy Family History Other Coronary artery disease Family history of diabetes mellitus type II Hyperlipidemia Hypertension Kidney disease Social History Smoking Status: Current every day smoker tobacco type: cigarettes packs per day: 1 pack-years: 25 quit status: not considering quitting second hand exposure: Yes ( smokes) alcohol intake: never counseling given: No counseling provided: none substance use type: marijuana and other details: smokes cannabis; on a regular basis; says it helps her tingling; andsleep current occupational status: disabled Travel in the last 8 weeks: None adopted: No caregiver/support person: No foster care: No household members: spouse housing: house lives independently: Yes marital status: number of children: 1 number of grandchildren: 0 education level: high school service: No chcf: No current occupational exposures/hazards: No Hx Recent Travel: No sexually active: Yes caffeine: Yes physical activity: none working smoke detector in home: Yes fire extinguisher in home: No carbon monox detector in home: Yes firearms in home: No do you feel safe at home: Yes victim of physical abuse: No victim of emotional abuse: No victim of sexual abuse: No would you like helpful sources: No [facility] Anesthesia Checklist Patient Identification Patient Identification: Arm Band and Verbal (Name & ) Structural Data Admitted From: Home Planned Operative Procedure/s: Hyst/Lap tubal Consent for Planned Operative Procedure(s) Verified: Yes NPO Status Verified Time NPO: 07:00 Chart Verification Results Verified: HCG Additional verifications Anesthesia Reactions: No Hx Blood Transfusions: No Blood Transfusion Reaction: No Airway Assessment C-Spine Mobility Assessed: Yes TMJ Mobility Assessed: Yes Dentition: Edentulous Neurological Assessment Level of Consciousness: Awake Hx Seizures: No Numbness or tingling in extremities: No Anesthesia Plan Anesthesia Risk discussed: Yes Anesthesia Plan: Verified ASA Class: III Anesthesia Type: General
--- NOTE | 2023-02-23 12:44 | EXP.ANES.I ---
[facility] Anesthesia Record Part I Anesthesia Record I Intake, IV Amount: 900 Estimated blood loss (mL): 10 Urine output (mL): 0 Blood Pressure: 139/92 SaO2: 92 Pulse Rate: 92 Respiratory Rate: 12 Temperature: 97.6 F Patient is:: Drowsy and Nasal O2 Stable to PACU at:: 12:37
--- NOTE | 2023-02-23 13:50 | P.OP_ITS ---
Date of procedure: 02/23/23 Pre-op Diagnosis:: 1. Undesired fertility 2. DUB 3. Obesity Post-op Diagnosis:: Same Procedure performed:: 1. Laparoscopic Tubal Ligation 2. D&C Hysteroscopy, Novasure Endometrial Ablation Surgeon:: Hilary Schwarz MD [employer]:: Stone Carrero Anesthesia: GETA Estimated blood loss (mL): 5 Operative findings:: normal pelvic anatomy normal uterine cavity Operative note:: LAPAROSCOPY: The patient was taken to the operating room and general anesthesia was administered. She was prepped/draped in lithotomy position. A uterine manipulator was placed without difficulty. Gloves were changed and attention was turned to the abdomen. A 5mm skin incision was made in the umbilical fold and the verees needle was inserted through the peritoneum and into the abdominal cavity in standard fashion. The abdomen was insufflated with CO2 gas. A 5mm non-bladed trocar was inserted directly into the abdominal cavity and appropriate placement was confirmed with the laparoscope. No intra-abdominal injuries occurred during entry into the abdominal cavity, as confirmed visually with the laparoscope. The patient was placed in trendelenburg and a 8mm skin incision was made 2cm above the pubic symphysis. A 8mm non-bladed trocar was inserted under direct visualization, without complication. The uterus was elevated out of the pelvis in order to better visualize the anatomy. A survey of the pelvis and abdomen revealed the findings noted above. Filshie clips were applied to the left and right fallopian tube without complication. Clips were noted to occlude the tubes completely. The abdomen was then evacuated of gas and all trocars removed. The skin incisions were closed with 4-0 monocryl and dermabond. HYSTEROSCOPY: Attention was then turned to the vagina, and the uterine manipulator was removed. The anterior lip of the cervix was grasped with a single tooth tenaculum and the cervix was dilated with Malik dilators of serially increasing size until the external os was able to accomodate the Myosure hysteroscope. The hysteroscope was advanced through the cervix and into the uterine cavity, which was distended with LR. Once the uterus was sufficiently distended, the cavity was evaluated and revealed a grossly normal cavity, with no polyps or fibroids noted. Sharp curettage was performed and the specimen sent for pathology. The uterine cavity sounded to a length of 4.5cm with a width of 3.5cm. The Novasure was inserted through the cervix and expanded to fit the width of the uterus. The device was deployed and the endometrial ablation was completed in 78 seconds. Once the device had turned off, the Novasure was removed from the uterus and the hysteroscope was reinserted into the uterine cavity. The cavity appeared diffusely cauterized. The hysteroscope was removed from the uterus and all instruments removed from the vagina. The tenaculum site was hemostatic. All sponge/lap/needle/instrument counts correct for both abdominal and vaginal procedures. Total EBL: 5 cc. The patient was taken out of lithotomy position, extubated and taken to the PACU in stable condition. Condition: stable Disposition: PACU Specimens:: Endometrial curettings Complications:: None
--- NOTE | 2023-02-27 07:38 | P.PNANES_ITS ---
[facility] Anesthesia Record Part II Anesthesia Record Part II Discharge Time: 13:07 Destination: Surgical Day Care (OP Surgery) PACU nurse assessment reviewed?: Yes Patient Condition:: Good Anesthesia Complications:: None Swallowing reflex intact?: Yes Cyanosis?: No Blood Pressure: 138/90 Pulse Rate: 78 Temperature: 97.8 F Mental Status: Alert & Oriented Pain level:: 9 Nausea and/or vomitting:: None Intake, IV Amount: 0
[2023-02-27 07:39] VITALS: BP 138/90; PULSE 78; TEMP 36.6
== END 2023-02-23 14:00 | disposition home or self-care (01) ==
PROVIDERS: PCP Family Medicine; Visit Provider Obstetrics & Gynecology
PROC: (CPT 58563; principal; 2023-02-23 07:30)
DX: Z30.2 Encounter for sterilization (principal); N93.8 Other specified abnormal uterine and vaginal bleeding; N91.2 Amenorrhea, unspecified; F17.210 Nicotine dependence, cigarettes, uncomplicated; Z79.899 Other long term (current) drug therapy
CPT/HCPCS: 58563; 58671; 96374; J2405

== ENCOUNTER 2023-04-25 10:08 | Emergency (ER) | payer MEDICAID, SELFPAY ==
[2023-04-25 10:09] VITALS: BP 148/90; PULSE 91; RESP 18; TEMP 36.7; O2SAT 98; BMI 45.7
--- NOTE | 2023-04-25 10:32 | EXP.UTC ---
Discharge Plan Disposition Patient Disposition: Home, Self-Care Condition: Good Prescriptions Prescriptions: New triamcinolone acetonide 0.1 % ointment 1 applic topical BID Qty: 30 0RF Rx Instructions: apply to bites as directed No Action albuterol sulfate 90 mcg/actuation HFA aerosol inhaler 2 puff inhalation Q4-6H PRN (Reason: shortness of breath or wheezing) Qty: 8.5 10RF ergocalciferol (vitamin D2) [Drisdol] 1,250 mcg (50,000 unit) capsule 1,250 mcg PO WEEKLY Qty: 5 10RF mirtazapine [Remeron] 15 mg tablet 15 mg PO QHS Qty: 30 1RF paroxetine HCl [Paxil] 20 mg tablet 20 mg PO DAILY Qty: 30 1RF Kesimpta Pen 20 mg/0.4 mL pen injector 20 mg SQ QMONTH Rx Instructions: 28th every month baclofen 10 mg tablet 20 mg PO TID MDD 60 mg Qty: 180 3RF ibuprofen 600 mg tablet 600 mg PO BID PRN (Reason: pain) Qty: 60 3RF bupropion HCl [Wellbutrin XL] 300 mg tablet extended release 24 hr 300 mg PO DAILY Qty: 30 1RF diphenhydramine HCl [Benadryl Allergy] 25 mg tablet 50 mg PO HS MDD 50 mg PRN (Reason: .) pantoprazole [Protonix] 40 mg tablet,delayed release (DR/EC) 40 mg PO DAILY Referrals Follow up/Referrals: Karthik Olvera MD [Primary Care Provider] - See instructions Activity Restrictions/Add. Instructions Additional Instructions/Restrictions: Use prescribed ointment as prescribed Over the counter neosporin may help with irritation Follow up with your Family Doctor if no improvement or any worsening of symptoms Over the counter Benadryl may help with itching Clinical Impressions Clinical Impression: Insect bite Qualifiers: Encounter type: initial encounter Site of insect bite of head: unspecified part Instructions Patient Instructions: DI for Insect Bites and Stings, Triamcinolone Topical Discharge ED Provider: Gisela Guidry [facility] [place] HPI General Stated complaint: Rash on feet w/ burning Mode of Arrival: Ambulatory Source of Information: Patient Limitations: No Limitations Time Seen by Provider: 04/25/23 10:32 Description of Symptoms (Recalled from Triage Doc. by RN): Complaint of rash on left foot and right leg burning, itching sore since yesterday. HEENT Symptoms (Recalled from RN notes): No Resp Symptoms (Recalled from RN notes): No Skin Symptoms (Recalled from RN notes): Yes MS Symptoms (Recalled from RN notes): No Functional Status (Recalled from RN notes): wnl History of Present Illness Provider Complaint: Patient states that she woke up and something was biting her in the night on her left foot and ankle and got her last night on the back of her right leg states that she looked worried it may be bed bugs but didnt see anything not sure if it may have been knats or ants States that the areas itch and then valderrama when she scratches it Related Data Home Medications Medication Instructions Recorded Confirmed pantoprazole 40 mg tablet,delayed 40 mg PO DAILY GERD 12/27/22 04/20/23 release (Protonix) diphenhydramine HCl 25 mg tablet 50 mg PO HS PRN . 02/21/23 04/20/23 (Benadryl Allergy) ofatumumab 20 mg/0.4 mL 20 mg SQ QMONTH ms 03/07/23 04/20/23 subcutaneous pen injector (Kesimpta Pen) Previous Rx's Medication Instructions Recorded baclofen 10 mg tablet 20 mg PO TID spasticity #180 tabs 03/07/23 ibuprofen 600 mg tablet 600 mg PO BID PRN pain #60 tabs 03/07/23 albuterol sulfate 90 mcg/actuation 2 puff inhalation Q4-6H PRN 03/21/23 aerosol inhaler shortness of breath or wheezing #8.5 grams ergocalciferol (vitamin D2) 1,250 1,250 mcg PO WEEKLY #5 caps 03/21/23 mcg (50,000 unit) capsule (Drisdol) mirtazapine 15 mg tablet (Remeron) 15 mg PO QHS . #30 tabs 03/29/23 paroxetine HCl 20 mg tablet (Paxil) 20 mg PO DAILY Depression #30 tabs 03/29/23 bupropion HCl 300 mg 24 hr tablet, 300 mg PO DAILY #30 tabs 04/04/23 extended release (Wellbutrin XL) triamcinolone acetonide 0.1 % 1 applic topical BID #30 grams 04/25/23 topical oi
[2023-04-25 11:00] VITALS: BP 148/90; PULSE 91; RESP 18; TEMP 36.7; O2SAT 98
== END 2023-04-25 11:02 | disposition home or self-care (01) ==
PROVIDERS: Emergency Provider Nurse Practitioner; PCP Family Medicine
DX: S80.861A Insect bite (nonvenomous), right lower leg, initial encounter (principal); F17.210 Nicotine dependence, cigarettes, uncomplicated; J45.909 Unspecified asthma, uncomplicated; G35 Multiple sclerosis; F41.1 Generalized anxiety disorder; F33.9 Major depressive disorder, recurrent, unspecified; K21.9 Gastro-esophageal reflux disease without esophagitis; W57.XXXA Bitten or stung by nonvenomous insect and other nonvenomous arthropods, initial encounter
CPT/HCPCS: 99212; 99213; G0463

== ENCOUNTER 2023-05-12 08:00 | Outpatient (RCR) | payer MEDICAID, SELFPAY ==
--- NOTE | 2023-03-28 11:50 | HMH.PTOPEV ---
PT Outpatient Evaluation Rehab PT Outpatient Evaluation Start: 03/28/23 11:23 Freq: Status: Active Protocol: Document 03/28/23 11:23 DOROTA (Rec: 03/28/23 11:50 DOROTA [id number]) E-signed By Anthony Navarrete, PT Outpatient Therapy Subjective History Subjective History This is the initial PT eval for Lo David, 37 yowf who presents with generalized weakness and decreased balance due to underlying MS diagnosis. She reports symptoms have been worse x ~ 1 mo and with associated increase in muscle spasms. She reports difficulty with prolonged standing activities, especiallly cooking or grocery shopping. She has goal to be able to independently complete her family grocery shopping. Chief Complaint Weakness,Decreased Coordination Symptoms Relieved By Rest/Positioning Symptoms Aggravated By Standing,Walking Prior Functional Limitations Recreation Activity,Walking Current Functional Limitations Housework,Standing,Recreation Activity,Walking Symptom Description Constant but Variable,Activity Dependent Level of pain today (0-10) 0 Balance Eval Gait/Posture Asssessment General Gait Observation Wide Based Gait Assistive Devices None / NA Level of Transfer Assist Independent Rhomberg Feet Together/Eyes open/Stable Surface pass Feet Together/Eyes Closed/Stable Surface pass Feet Together/Eyes open/Unstable Surface fail Feet Together/Eyes Closed/Unstable fail Surface Tinetti Sitting Balance Sitting Balance Steady, safe Arising from Chair Ability to Arise Able, w/o using arms Attempts to Arise Arises on 1st attempt Standing Balance Immediate Standing Balance Steady w/o support Standing Balance Steady, wide stance Nudged Response Staggers, catches self Standing with Eyes Closed Unsteady Turning Step Pattern Turning 360 Degrees Continuous steps Stability Turning 360 Degrees Unsteady, grabs/staggers Sitting Down Sitting Down Safe, steady Gait and Step Initiation of Gait No hesitancy Right Foot Step Length Does pass stance foot Right Foot Step Height Completely clears floor Left Foot Step Length Does pass stance foot Left Foot Step Height
--- NOTE | 2023-05-12 12:53 | HMH.RHREAS ---
Rehab Reassessment Rehab OP Re-assessment Start: 03/28/23 11:23 Freq: Status: Active Protocol: Document 05/12/23 12:50 DOROTA (Rec: 05/12/23 12:52 DOROTA [id number]) E-signed By Anthony Navarrete, PT Rehab Re-assessment Subjective Subjective Pt reports, I haven't used my wheelchair for anything all week, I'm doing great! Objective Objective Notes MMT: B LE grossly 5/5 throughout Tinetti: Score 28/28 no risk for falls at this time. Assessment Progress Assessment Progressing as Expected Assessment Notes Pt with significant ly improved functional ability with all standing activites. Gait pattern appears much more normalized with even stride length, even arm swing, and minimal recurvatum at the knees. Patient goals met ST,2,3,4,5,6 LT,2,3,4,5,6 Goals Not Met none Plan Plan Pt to d/c to wellness program independently at this time. Frequency of Therapy 0 Duration of therapy 0 Time and Billing Re-Eval Time 14 Re-Eval Billing Units 1 PHYSICIAN CERTIFICATION: I certify the specified therapy services for Lo David are required, authorized, and reviewed every 30 days.
== END 2023-05-12 08:05 | disposition home or self-care (01) ==
LOC: PT 08:00
PROVIDERS: PCP Family Medicine; Visit Provider Specialist
DX: G35 Multiple sclerosis (principal); R29.898 Other symptoms and signs involving the musculoskeletal system; G37.9 Demyelinating disease of central nervous system, unspecified
CPT/HCPCS: 97112; 97140; 97163; 97164; 97530

== ENCOUNTER → 2023-06-20 16:11 | Outpatient (CLI) | payer MEDICAID, SELFPAY ==
--- NOTE | 2023-06-20 16:14 | MR_ITS ---
PROCEDURE INFORMATION: Exam: MR Head Without and With Contrast Exam date and time: 06/20/2023 3:34 PM Age: 37 years old Clinical indication: Other: Ms TECHNIQUE: Imaging protocol: Magnetic resonance imaging of the head without and with contrast. Contrast material: PROHANCE; Contrast volume: 27 ml; Contrast route: IV; COMPARISON: MR HEAD/BRAIN WO CON 08/04/2022 12:36 PM FINDINGS: Brain: No acute intraparenchymal hemorrhage, territorial infarct or mass lesion. There is redemonstration of multiple perpendicular callososeptal T2 hyperintensities characteristic of demyelination. There is a demyelination plaque is DWI hyperintense in the left parietal white matter, attributed to T2 shine through /facilitated diffusion. No abnormal enhancing plaque. Cerebral ventricles: The ventricles, sulci and cisterns are normal in size and configuration. No hydrocephalus or midline structure shift Pituitary gland and sella: Orbits, sellar/parasellar structures and cervicomedullary junction are unremarkable. Bones/joints: Are unremarkable Paranasal sinuses: Normal as visualized. No acute sinusitis. Mastoid air cells: Normal as visualized. No mastoid effusion. Orbital cavities: Unremarkable. Soft tissues: Unremarkable. IMPRESSION: No substantial change in demyelination plaque burden. No abnormal enhancement
== END ==
PROVIDERS: PCP Family Medicine; Referring Provider Specialist; Visit Provider Psychiatry & Neurology Neurology
DX: G35 Multiple sclerosis (principal); R26.0 Ataxic gait
CPT/HCPCS: 70553; A9576

== ENCOUNTER → 2023-08-28 09:53 | Outpatient (CLI) | payer MEDICAID, SELFPAY | PROVIDERS: PCP Nurse Practitioner Family; Visit Provider Student in an Organized Health Care Education/Training Program | DX: J02.9 Acute pharyngitis, unspecified (principal); R05.9 Cough, unspecified; R09.81 Nasal congestion | CPT/HCPCS: 87635 ==

== ENCOUNTER 2023-11-27 21:48 | Outpatient (CLI) | payer MEDICAID, SELFPAY ==
[2023-11-27 18:08] LABS: Influenza A, PCR Not Detected (NotDetected); Influenza B, PCR Not Detected (NotDetected)
[2023-11-27 20:06] LABS: Coronavirus 19, PCR Detected (NotDetected)
== END 2023-11-27 23:59 ==
LOC: LAB.DROPOF 21:48
PROVIDERS: PCP Student in an Organized Health Care Education/Training Program; Visit Provider Student in an Organized Health Care Education/Training Program
DX: R05.9 Cough, unspecified (principal); U07.1 COVID-19; R09.89 Other specified symptoms and signs involving the circulatory and respiratory systems; R53.83 Other fatigue; R19.7 Diarrhea, unspecified
CPT/HCPCS: 87636

== ENCOUNTER 2023-12-15 20:12 | Outpatient (CLI) | payer MEDICAID, SELFPAY ==
[2023-12-15 17:48] LABS: Basophils % 0.6 % (0.1-2.0); Eosinophils # 0.3 K/mm3 (0.0-0.4); Eosinophils % 4.1 % (0.1-12.0); Hematocrit 47.5 % (37.0-47.0); Hemoglobin 15.1 g/dL (12.2-16.2); Lymphocytes # 2.1 K/mm3 (0.7-4.5); Lymphocytes % 26.9 % (10-50); Mean Corpuscular HGB Conc 31.8 g/dL (31.8-35.4); Mean Corpuscular Volume 97.5 fl (81-99); Mean Platelet Volume 9.7 fl (7.4-10.4); Monocytes # 0.8 K/mm3 (0.1-1.0); Monocytes % 10.2 % (1.7-9.3); Neutrophils # 4.6 K/mm3 (1.8-7.8); Neutrophils % 58.3 % (37.0-80.0); Platelet Count 343 K/mm3 (142-424); Red Blood Count 4.87 M/mm3 (4.20-5.40); Red Cell Distribution Width 14.2 % (11.5-17.5); White Blood Count 7.8 K/mm3 (4.8-10.8)
[2023-12-15 18:12] LABS: Alanine Aminotransferase 19 U/L (12-78); Albumin Level 4.1 g/dl (3.5-5.0); Albumin/Globulin Ratio 1.5 (1.1-1.8); Alkaline Phosphatase 103 U/L (38-126); Anion Gap 12.2 mEq/L (5-15); Aspartate Amino Transferase 20 U/L (14-36); Bilirubin,Total 0.4 mg/dl (0.2-1.3); Blood Urea Nitrogen 16 mg/dl (7-17); Calcium 9.2 mg/dl (8.4-10.2); Carbon Dioxide 25 mmol/L (22.0-30.0); Chloride 107 mmol/L (98-107); Chol/HDL Ratio 6.5 (1-3.5); Cholesterol 274 mg/dl (140-200); Estimated Glomerular Filt Rate 95 ml/min (>60); GFR (African American) 115 ML/MIN (>60); Globulin 2.8 g/dL (1.3-3.2); Glucose 93 mg/dl (74-100); HDL Cholesterol 42 mg/dl (40-60); Potassium 4.2 mmoL/L (3.5-5.1); Sodium 140 mmol/L (136-145); Total Protein,Serum 6.9 g/dl (6.3-8.2); Triglycerides 232 mg/dl (30-150); VLDL Cholesterol 46 mg/dL (0-40)
[2023-12-15 18:24] LABS: Direct LDL Cholesterol 152.91 mg/dL (100-129)
[2023-12-15 18:31] LABS: 25-OH Vitamin D, Total 26.4 ng/mL (30-100)
[2023-12-15 18:43] LABS: Thyroid Stimulating Hormone 0.88 uIU/mL (0.465-4.68)
[2023-12-15 19:07] LABS: Hemoglobin A1C 5.1 % (4.0-6.0)
[2023-12-15 19:19] LABS: Vitamin B12 974 pg/mL (239-931)
[2023-12-15 19:20] LABS: Folate 4.23 ng/mL
== END 2023-12-15 23:59 ==
LOC: LAB.DROPOF 20:13
PROVIDERS: PCP Student in an Organized Health Care Education/Training Program; Visit Provider Student in an Organized Health Care Education/Training Program
DX: E55.9 Vitamin D deficiency, unspecified (principal); E53.8 Deficiency of other specified B group vitamins; Z13.29 Encounter for screening for other suspected endocrine disorder; E66.9 Obesity, unspecified; Z68.42 Body mass index [BMI] 45.0-49.9, adult; Z79.899 Other long term (current) drug therapy
CPT/HCPCS: 80053; 80061; 82306; 82607; 82746; 83036; 84443; 85025

== ENCOUNTER 2024-01-03 06:54 | Emergency (ER) | payer MEDICAID, SELFPAY ==
[2024-01-03 06:56] VITALS: BP 114/60; PULSE 77; RESP 18; TEMP 36.6; O2SAT 97; BMI 48.5
--- NOTE | 2024-01-03 07:13 | PC.NURSE ---
dr calabrese at bedside
--- NOTE | 2024-01-03 07:34 | HMH.EDGENADL ---
Discharge Plan Disposition Patient Disposition: Home, Self-Care Prescriptions Prescriptions: New prednisone 50 mg tablet 1,250 mg PO DAILY 5 Days Qty: 125 0RF No Action albuterol sulfate 90 mcg/actuation HFA aerosol inhaler 2 puff inhalation Q4-6H PRN (Reason: shortness of breath or wheezing) Qty: 8.5 10RF ergocalciferol (vitamin D2) [Drisdol] 1,250 mcg (50,000 unit) capsule 1,250 mcg PO WEEKLY Qty: 5 10RF bupropion HCl [Wellbutrin XL] 150 mg tablet extended release 24 hr 150 mg PO DAILY Qty: 60 3RF Rx Instructions: Take one daily for two weeks, then increase to two daily Kesimpta Pen 20 mg/0.4 mL pen injector 20 mg SQ QMONTH Rx Instructions: every month ibuprofen 600 mg tablet 600 mg PO BID PRN (Reason: pain) Qty: 60 3RF mirtazapine [Remeron] 15 mg tablet 15 mg PO QHS PRN (Reason: .) Qty: 30 1RF baclofen 10 mg tablet 20 mg PO TID MDD 60 mg Qty: 180 5RF nxznranwygeqzbk-pnzxfruoq-VK [Bromfed DM] 2-30-10 mg/5 mL syrup 5 ml PO Q4-6H PRN (Reason: cold symptoms) Qty: 118 0RF pantoprazole [Protonix] 40 mg tablet,delayed release (DR/EC) 40 mg PO DAILY Qty: 90 0RF paroxetine HCl [Paxil] 40 mg tablet 40 mg PO DAILY Qty: 30 1RF diphenhydramine HCl [Benadryl Allergy] 25 mg tablet 50 mg PO HS MDD 50 mg PRN (Reason: .) Referrals Follow up/Referrals: Provider,Referral, MD [Referring] - See instructions Activity Restrictions/Add. Instructions Additional Instructions/Restrictions: Call your family doctor to establish care for this visit to the emergency department and schedule follow-up within 48 hours to ensure improvement. If you have any worsening of your condition or any other concerning signs or symptoms, return to the emergency department or your primary care doctor for further evaluation. As discussed, reach out to your neurologist to have an urgent MRI scheduled. Take prednisone 1250 mg for the next few days as prescribed. Clinical Impressions Clinical Impression: Multiple sclerosis exacerbation Discharge ED Provider: Greg Stroud General Adult HPI General Chief complaint: Recheck/Abnormal Lab/Rx Stated complaint: MS flare up Time Seen by Provider: 01/03/24 06:59 Mode of Arrival: Wheelchair Source of Information: Patient and Spouse Limitations: No Limitations Description of Symptoms (Recalled from ER Triage Doc. by RN): PT WITH MS, REPORTS MS FLAIR UP STARTED 2 DAYS AGO WITH BURNING/TINGLING OF LEFT SIDE OF BODY. HAS PROGRESSED TO RIGHT SIDE LAST NIGHT. REPORTS TREMORS AND SPASMS OF WHOLE BODY. LIKE BUGS ARE BITING ME ALL OVER History of Present Illness HPI narrative: Is a 38-year-old female history of hypertension,, depression, and headache, migraine disorder, relapsing and remitting multiple sclerosis large intermission secondary to Kesimpta (ofatumumab) presenting with multiple complaints. Patient states that 2 days prior to this visit, she started having spasticity on the left side of her face and left side of her body. It was associated with pain and paresthesias. Yesterday, she started having pain and paresthesias on the right side of her face and body. Today, 01/02, she started having paresthesias all over her body and stated it feels like there are ants all over me and biting me, even though I know they are not. She states that she has a strong urge to itch, but is doing her best not to do so. No vision changes, headache, nausea, vomiting, unilateral motor deficits, speech deficits, or any other concerns Related Data Home Medications Medication Instructions Recorded Confirmed diphenhydramine HCl 25 mg tablet 50 mg PO HS PRN . 02/21/23 12/27/23 (Benadryl Allergy) ofatumumab 20 mg/0.4 mL 20 mg SQ QMONTH ms 03/07/23 12/27/23 subcutaneous pen injector (Kesimpta Pen) Previous Rx's Medication Instructions Recorded ibuprofen 600 mg tablet 600 mg PO BID PRN pain #60 tabs 03/07/23 albuterol sulfate 90 mcg/actuation 2 puff inhalation Q4-6H PRN 03/21/23 aerosol inhaler shortness of breath or wheezing #8.5 grams ergocalciferol (vitamin D2) 1,250 1,250 mcg PO WEEKLY #5 caps 03/21/23 mcg (50,000 unit) capsule (Drisdol) mirtazapine 15 mg tablet (Remeron) 15 mg PO QHS PRN . #30 tabs 10/26/23 pantoprazole 40 mg tablet,delayed 40 mg PO DAILY GERD #90 tabs 10/31/23 release (Protonix) baclofen 10 mg tablet 20 mg (2 x 10 mg) PO TID 11/27/23 spasticity #180 tabs paroxetine HCl 40 mg tablet (Paxil) 40 mg PO DAILY #30 tabs 12/06/23 gwyyrpwcntkfrth-fixwbvsxxncxcfb-GF 5 ml PO Q4-6H PRN cold symptoms 12/22/23 2 mg-30 mg-10 mg/5 mL oral syrup #118 mL (Bromfed DM) bupropion HCl 150 mg 24 hr tablet, 150 mg PO DAILY #60 tabs 12/27/23 extended release (Wellbutrin XL) prednisone 50 mg tablet 1,250 mg (25 x 50 mg) PO DAILY 5 01/03/24 days #125 tabs Allergies Allergy/AdvReac Type Severity Reaction Status Date / Time coconut Allergy Severe Anaphylaxis Verified 01/02/24 09:52 [From COCONUT (FOOD/DRUG)] MUSHROOMS Allergy Severe Anaphylaxis Uncoded 12/27/23 14:06 [facility] Disclaimer: The information contained in this section may have been updated after the patient was seen, as this information can be updated by other users. Medical History Migraine Multiple sclerosis Generalized anxiety disorder Major depressive disorder Asthma GERD (gastroesophageal reflux disease) Surgical History History of endometrial ablation History of tubal ligation History of tonsillectomy History of cholecystectomy Family History Other Coronary artery disease Family history of diabetes mellitus type II Hyperlipidemia Hypertension Kidney disease Social History Smoking Status: Former smoker tobacco type: cigarettes packs per day: 1 quit status: considering quitting second hand exposure: Yes ( smokes) alcohol intake: never counseling given: No counseling provided: none substance use type: former substance user, marijuana and other details: smokes cannabis; on a regular basis; says it helps her tingling; andsleep current occupational status: disabled Travel in the last 8 weeks: None adopted: No caregiver/support person: No foster care: No household members: spouse housing: house lives independently: Yes marital status: number of children: 1 number of grandchildren: 0 education level: high school service: No senior care: No current occupational exposures/hazards: No Hx Recent Travel: No sexually active: Yes caffeine: Yes physical activity: none working smoke detector in home: Yes fire extinguisher in home: No carbon monox detector in home: Yes firearms in home: No do you feel safe at home: Yes victim of physical abuse: No victim of emotional abuse: No victim of sexual abuse: No would you like helpful sources: No ROS Obtained: Yes All systems reviewed & no additional complaints except as documented Physical Exam General General appearance: alert and in no apparent distress Head Head exam: atraumatic and normocephalic Eye Eye exam: Present normal appearance, PERRL and EOMI ENT ENT exam: Present mucous membranes moist Neck Neck exam: Present normal inspection, full ROM and trachea midline Respiratory Respiratory exam: Absent respiratory distress, wheezes, stridor, accessory muscle use or prolonged expiratory phase Cardiovascular Cardiovascular exam: Present regular rate and normal rhythm Abdominal Exam Abdominal exam: Present soft; Absent distention, tenderness, guarding, rebound or rigidity Extremities Exam Extremities exam: Absent edema Neurological Exam Neurological exam: Present alert, oriented X3, CN II-XII intact and normal gait; Absent motor sensory deficit Skin Skin exam: Present warm and dry; Absent diaphoresis or erythema Medical Decision Making Medical Records Medical records reviewed: Yes I reviewed the patient's medical records. Jim Inquiry Pt receiving controlled substance: No Jim was queried for this patient: No Vital Signs: 01/03/24 06:56 Temperature 97.8 F Temperature Source Oral Pulse Rate [Radial] 77 Respiratory Rate 18 Blood Pressure [Right Arm] 114/60 Blood Pressure Mean [Right Arm] 78 Blood Pressure Source [Right Arm] Automatic Cuff Blood Pressure Position [Right Arm] Sitting 02 Sat by Pulse Oximetry 97 Oxygen Delivery Method Room Air Lab Data Lab Results 01/03/24 07:38: WBC 8.2, RBC 4.70, Hgb 14.7, Hct 44.7, MCV 95.3, MCH 31.3 H, MCHC 32.9, RDW 14.5, Plt Count 323, MPV 8.2, Neut % (Auto) 61.7, Lymph % (Auto) 26.1, [place] % (Auto) 6.6, Eos % (Auto) 4.5, Baso % (Auto) 1.1, Neut # (Auto) 5.0, Lymph # (Auto) 2.1, [place] # (Auto) 0.5, Eos # (Auto) 0.4, Baso # (Auto) 0.1, Sodium 140, Potassium 3.7, Chloride 104, Carbon Dioxide 26, Anion Gap 13.7, BUN 16, Creatinine 0.70, Estimated Creat Clear 108, Estimated GFR 95, Est GFR ( Amer) 115, Glucose 97, Calcium 9.1, Magnesium 2.1, Total Bilirubin 0.4, AST 25, ALT 27, Alkaline Phosphatase 102, Total Protein 7.3, Albumin 4.2, Globulin 3.1, Albumin/Globulin Ratio 1.4, TSH 1.43, Thyroxine (T4) 7.8 01/03/24 09:50: Urine Color Yellow, Urine Appearance Clear, Urine pH 6.0, Ur Specific Chavies 1.025, Urine Protein Negative, Urine Glucose (UA) Negative, Urine Ketones Negative, Urine Blood Negative, Urine Nitrate Negative, Urine Bilirubin Negative, Urine Urobilinogen 0.2, Ur Leukocyte Esterase Negative 01/03/24 07:38 01/03/24 07:38 Orders (Tests/Meds): ED MEDICATIONS Generic Name Dose Route Start Last Admin Trade Name Freq PRN Reason Stop Dose Admin Sodium Chloride 10 ml 01/03/24 07:40 Sodium Chloride 0.9% 10ml Flush Syringe IV 02/02/24 07:39 NEEDED PRN Maintain IV Site Discontinued Medications Generic Name Dose Route Start Last Admin Trade Name Freq PRN Reason Stop Dose Admin Acetaminophen 1,000 mg 01/03/24 07:27 01/03/24 07:48 Acetaminophen 1,000mg/100ml Vial IV 01/03/24 07:28 1,000 mg ONCE ONE Administration Methylprednisolone Sodium 250 mls @ 500 mls/hr 01/03/24 08:00 01/03/24 08:12 Succinate 1,000 mg/ Sodium IV 01/03/24 08:29 500 mls/hr Chloride ONCE ONE Administration Ketorolac Tromethamine 15 mg 01/03/24 07:27 01/03/24 07:48 Ketorolac 30mg/Ml Vial IV 01/03/24 07:28 15 mg ONCE ONE Administration ORDERS Category Date Time Status Complete Blood Count Auto Diff Stat Lab 01/03/24 07:38 Completed Comprehensive Metabolic Panel Stat Lab 01/03/24 07:38 Completed Magnesium Stat Lab 01/03/24 07:38 Completed T4 (Thyroxine) Stat Lab 01/03/24 07:38 Completed TSH [Thyroid Stimulating Hormone] Stat Lab 01/03/24 07:38 Completed Urinalysis and Microscopic Stat Lab 01/03/24 09:50 Results Medical Decision Narrative: Is a 38-year-old female history of hypertension,, depression, and headache, migraine disorder, relapsing and remitting multiple sclerosis large intermission secondary to Kesimpta (ofatumumab) presenting with multiple complaints. Patient states that 2 days prior to this visit, she started having spasticity on the left side of her face and left side of her body. It was associated with pain and paresthesias. Yesterday, she started having pain and paresthesias on the right side of her face and body. Today, 01/02, she started having paresthesias all over her body and stated it feels like there are ants all over me and biting me, even though I know they are not. She states that she has a strong urge to itch, but is doing her best not to do so. No vision changes, headache, nausea, vomiting, unilateral motor deficits, speech deficits, or any other concerns. History was obtained via conversation with patient and significant other. On arrival, patient hemodynamically stable, alert, oriented x4, appropriate, GCS 15, moving all extremities spontaneously, pupils equal and reactive to light. Full physical exam performed and significant for well-appearing female in no acute distress. Neuroexam is intact including cranial nerve, cerebellar, motor and sensory exams. Differential includes anxiety, migraine, complex migraine, multiple sclerosis exacerbation, among others. Patient was given 1000 mg Solu-Medrol, Toradol, acetaminophen for symptomatic management and correction of underlying abnormalities. Workup independently interpreted and significant for nonactionable CBC or chemistry. Thyroid studies negative. MRI of the head and spine was considered, but deemed unnecessary at this time. Patient does not have unilateral deficits, no motor deficits and appears overall well. On reevaluation, patient resting comfortably in bed. Given patient presentation, workup, history, this most likely represents acute exacerbation of relapsing remitting multiple sclerosis versus panic attack. Regarding social determinants of health, patient does have close access with her neurologist over [facility], prior to discharge, patient had already sent them a message and had confirmed they were scheduling urgent MRI for further evaluation. Because patient at baseline without signs or symptoms of clinical decompensation, deemed appropriate for discharge. Results were relayed to patient who voiced understanding and were agreeable to outpatient management and follow up. At the time of discharge the patient was hemodynamically stable, tolerating PO, and mobilizing appropriately. Critical Care Critical Care Time Critical Care Time: No
[2024-01-03] MEDS: ACETAMINOPHEN 1,000MG/100ML VIAL 1000 MG IV (07:48)
[2024-01-03] MEDS: KETOROLAC 30MG/ML VIAL 15 MG IV (07:48)
[2024-01-03 08:07] LABS: Alanine Aminotransferase 27 U/L (12-78); Albumin Level 4.2 g/dl (3.5-5.0); Albumin/Globulin Ratio 1.4 (1.1-1.8); Alkaline Phosphatase 102 U/L (38-126); Anion Gap 13.7 mEq/L (5-15); Aspartate Amino Transferase 25 U/L (14-36); Bilirubin,Total 0.4 mg/dl (0.2-1.3); Blood Urea Nitrogen 16 mg/dl (7-17); Calcium 9.1 mg/dl (8.4-10.2); Carbon Dioxide 26 mmol/L (22.0-30.0); Chloride 104 mmol/L (98-107); Creatinine Clearance Estimated 108 mL/min (50-200); Estimated Glomerular Filt Rate 95 ml/min (>60); GFR (African American) 115 ML/MIN (>60); Globulin 3.1 g/dL (1.3-3.2); Glucose 97 mg/dl (74-100); Magnesium 2.1 mg/dl (1.6-2.3); Potassium 3.7 mmoL/L (3.5-5.1); Sodium 140 mmol/L (136-145); Total Protein,Serum 7.3 g/dl (6.3-8.2)
[2024-01-03 08:12] LABS: Basophils # 0.1 K/mm3 (0-0.2); Basophils % 1.1 % (0.1-2.0); Eosinophils # 0.4 K/mm3 (0.0-0.4); Eosinophils % 4.5 % (0.1-12.0); Hematocrit 44.7 % (37.0-47.0); Hemoglobin 14.7 g/dL (12.2-16.2); Lymphocytes # 2.1 K/mm3 (0.7-4.5); Lymphocytes % 26.1 % (10-50); Mean Corpuscular HGB Conc 32.9 g/dL (31.8-35.4); Mean Corpuscular Hemoglobin 31.3 pg (27.0-31.2); Mean Corpuscular Volume 95.3 fl (81-99); Mean Platelet Volume 8.2 fl (7.4-10.4); Monocytes # 0.5 K/mm3 (0.1-1.0); Monocytes % 6.6 % (1.7-9.3); Neutrophils % 61.7 % (37.0-80.0); Platelet Count 323 K/mm3 (142-424); Red Cell Distribution Width 14.5 % (11.5-17.5); White Blood Count 8.2 K/mm3 (4.8-10.8)
[2024-01-03] MEDS: METHYLPREDN SOD SUCC 1,000 MG in 0.9 % SODIUM CHLORIDE 250 ML 500 MG IV (08:12)
[2024-01-03 08:24] LABS: T4 (Thyroxine) 7.8 ug/dl (5.53-11.0)
[2024-01-03 08:38] LABS: Thyroid Stimulating Hormone 1.43 uIU/mL (0.465-4.68)
--- NOTE | 2024-01-03 09:49 | PC.NURSE ---
PT ASSISTED TO BR FOR UA
--- NOTE | 2024-01-03 09:55 | PC.NURSE ---
pt ambulatory to the bathroom, sent urine sample to the lab.
[2024-01-03 09:56] LABS: Microscopic, Urine URINE MICROSCOPIC (MICROSCOPIC)
[2024-01-03 09:58] LABS: Appearance,Urine CLEAR (Clear); Bilirubin,Urine Negative (Negative); Blood, Urine Negative (Negative); Color,Urine YELLOW (Yellow); Glucose,Urine (UA) Negative (Negative); Ketones,Urine Negative (Negative); Leukocyte Esterase,Urine Negative (Negative); Nitrate,Urine Negative (Negative); Protein,Urine Negative (Negative); Specific Gravity, Urine 1.025 (1.005-1.030); Urobilinogen,Urine 0.2 EU/dl (0.2)
[2024-01-03 10:46] VITALS: BP 116/65; PULSE 75; RESP 16; TEMP 36.4; O2SAT 98
[2024-01-03 10:47] LABS: RBC,Urine Occasional #/hpf (0-3); WBC,Urine Occasional #/hpf (0-3)
[2024-01-03 10:48] LABS: Bacteria,Urine 1+ /lpf; Mucus,Urine Trace /lpf; Squamous Epithelial Cell,Urine 20-50 #/hpf (0-5)
== END 2024-01-03 10:47 | disposition home or self-care (01) ==
PROVIDERS: Emergency Provider Emergency Medicine; PCP Student in an Organized Health Care Education/Training Program
DX: G35 Multiple sclerosis (principal); R20.2 Paresthesia of skin; R25.1 Tremor, unspecified; I10 Essential (primary) hypertension; F32.9 Major depressive disorder, single episode, unspecified; G43.909 Migraine, unspecified, not intractable, without status migrainosus; J45.909 Unspecified asthma, uncomplicated; F41.1 Generalized anxiety disorder; K21.9 Gastro-esophageal reflux disease without esophagitis; Z87.891 Personal history of nicotine dependence
CPT/HCPCS: 80053; 81001; 83735; 84436; 84443; 85025; 96365; 96375; 99285; J0131

== ENCOUNTER 2024-09-20 08:58 | Outpatient (CLI) | payer MEDICARE, SELFPAY ==
--- NOTE | 2024-09-20 09:00 | MR_ITS ---
FINAL REPORT TECHNIQUE: Multiplanar and multisequence imaging of the brain was obtained before and after contrast administration. CLINICAL HISTORY: Seizure like activity x 1 month pt also has ms 25 ml prohance given COMPARISON: 08/04/2022 FINDINGS: The gyri and sulci are within normal limits for age. There is no mass effect or midline shift. Periventricular white matter changes have slightly progressed in patient with known demyelinating disease. There is no new abnormal signal intensity. No hydrocephalus. The cerebellum and brainstem have an unremarkable appearance. There are no areas of restricted diffusion on diffusion weighted images to suggest acute infarct. Soft tissues are without acute abnormality. No pathologic contrast enhancement is identified. IMPRESSION: No acute intracranial abnormality. No abnormal enhancement. Slight progression in the periventricular white matter changes in patient with known MS. Reviewed, Interpreted and Dictated by Berenice Osullivan MD Transcribed by Rhiannon Mccabe Authenticated and [facility]
[2024-09-20] MEDS: GADOTERIDOL INJ 20ML SYRINGE 20 ML IV (10:17)
[2024-09-20] MEDS: SODIUM CHLORIDE 0.9% 10ML SYR (RAD ONLY) 10 ML IV (10:17)
[2024-09-20] MEDS: GADOTERIDOL INJ 10ML SYRINGE 5 ML IV (10:17)
== END 2024-09-20 23:59 | disposition home or self-care (01) ==
LOC: RAD 09:00
PROVIDERS: PCP Family Medicine; Visit Provider Specialist
DX: F44.4 Conversion disorder with motor symptom or deficit (principal); G35 Multiple sclerosis; G43.009 Migraine without aura, not intractable, without status migrainosus
CPT/HCPCS: 70553; A9576

== ENCOUNTER 2024-10-19 08:30 | Emergency (ER) | payer MEDICARE, SELFPAY ==
[2024-10-19 09:52] VITALS: BP 113/80; PULSE 96; RESP 18; TEMP 36.4; O2SAT 98; BMI 40.4
--- NOTE | 2024-10-19 09:52 | EXP.UTC ---
Discharge Plan Disposition Patient Disposition: Home, Self-Care Condition: Good Prescriptions Prescriptions: New amoxicillin 875 mg tablet 875 mg PO Q12H Qty: 20 0RF methylprednisolone 4 mg Tablets,Dose Pack 4 mg PO DIRECTED 6 Days Qty: 21 0RF Rx Instructions: Take 1 pack as directed for 6 days promethazine-DM 6.25-15 mg/5 mL Syrup 5 ml PO Q6H PRN (Reason: Cough) Qty: 240 0RF No Action albuterol sulfate 90 mcg/actuation HFA aerosol inhaler 2 puff inhalation Q4-6H PRN (Reason: shortness of breath or wheezing) Qty: 8.5 10RF pantoprazole [Protonix] 40 mg tablet,delayed release (DR/EC) 40 mg PO DAILY Qty: 90 0RF Trintellix 10 mg tablet 10 mg PO DAILY Qty: 30 2RF Kesimpta Pen 20 mg/0.4 mL pen injector 20 mg SQ QMONTH Rx Instructions: 28th every month baclofen 10 mg tablet 20 mg PO TID MDD 60 mg Qty: 180 5RF lorazepam 1 mg tablet 0.5 - 1 mg PO BID PRN (Reason: anxiety) Qty: 30 0RF ergocalciferol (vitamin D2) [Drisdol] 1,250 mcg (50,000 unit) capsule 1,250 mcg PO WEEKLY Qty: 5 10RF Ubrelvy 100 mg tablet 100 mg PO ONCE Qty: 15 1RF Rx Instructions: take at headache onset, may repeat dose after 2 hours if needed levetiracetam [Keppra] 500 mg tablet 500 mg PO BID Qty: 60 6RF diphenhydramine HCl [Benadryl Allergy] 25 mg tablet 50 mg PO HS MDD 50 mg PRN (Reason: .) Referrals Follow up/Referrals: Karthik Olvera MD [Primary Care Provider] - See instructions Activity Restrictions/Add. Instructions Additional Instructions/Restrictions: Drink plenty of fluids. Take tylenol or ibuprofen for pain or fever. Take the medications as directed. Follow up with your regular doctor. GO TO THE ER FOR ANY WORSENING SYMPTOMS Don't start the oral steroids (medrol dose pack) until tomorrow since you had the shot here The cough medication (promethazine dm) will make you drowsy, so don't drive or operate heavy machinery after taking it. Clinical Impressions Clinical Impression: Otitis media, Sinusitis Instructions Patient Instructions: Middle Ear Infection Print Language Print Language: Nicaraguan Discharge ED Provider: Mark Early [facility] [place] General Stated complaint: Pain in both ears, dizziness Time Seen by Provider: 10/19/24 09:52 Related Data Home Medications ?Medication ?Instructions ?Recorded ?Confirmed diphenhydramine HCl 25 mg tablet 50 mg PO HS PRN . 02/21/23 10/21/24 (Benadryl Allergy) ofatumumab 20 mg/0.4 mL 20 mg SQ QMONTH ms 03/07/23 10/21/24 subcutaneous pen injector (Kesimpta Pen) Previous Rx's ?Medication ?Instructions ?Recorded albuterol sulfate 90 mcg/actuation 2 puff inhalation Q4-6H PRN 03/21/23 aerosol inhaler shortness of breath or wheezing #8.5 grams baclofen 10 mg tablet 20 mg (2 x 10 mg) PO TID 11/27/23 spasticity #180 tabs ergocalciferol (vitamin D2) 1,250 1,250 mcg PO WEEKLY #5 caps 04/15/24 mcg (50,000 unit) capsule (Drisdol) ubrogepant 100 mg tablet (Ubrelvy) 100 mg PO ONCE #15 tabs 04/30/24 levetiracetam 500 mg tablet 500 mg PO BID #60 tabs 09/12/24 (Keppra) lorazepam 1 mg tablet 0.5 - 1 mg (0.5 - 1 x 1 mg) PO BID 10/01/24 PRN anxiety #30 tabs amoxicillin 875 mg tablet 875 mg PO Q12H #20 tabs 10/19/24 methylprednisolone 4 mg tablets in 4 mg PO DIRECTED 6 days #21 tabs 10/19/24 a dose pack promethazine-DM 6.25 mg-15 mg/5 mL 5 ml PO Q6H PRN Cough #240 mL 10/19/24 oral syrup pantoprazole 40 mg tablet,delayed 40 mg PO DAILY GERD #90 tabs 10/21/24 release (Protonix) vortioxetine 10 mg tablet 10 mg PO DAILY #30 tabs 10/21/24 (Trintellix) Allergies Allergy/AdvReac Type Severity Reaction Status Date / Time coconut (From COCONUT Allergy Severe Anaphylaxis Verified 10/21/24 09:57 (FOOD/DRUG)) mushroom Allergy Intermediate Anaphylaxis Verified 10/21/24 09:57 [facility] Disclaimer: The information contained in this section may have been updated after the patient was seen, as this information can be updated by other users. Medical History Acute bacterial bronchitis Patient left without being seen Exposure to COVID-19 virus Bronchitis Viral syndrome Shortness of breath UTI (urinary tract infection) Sinusitis, acute Otitis media Acute bronchitis Pain due to dental caries Laryngitis Insect bite Migraine Multiple sclerosis Generalized anxiety disorder Major depressive disorder Asthma GERD (gastroesophageal reflux disease) Surgical History History of endometrial ablation History of tubal ligation History of tonsillectomy History of cholecystectomy Family History Other Coronary artery disease Family history of diabetes mellitus type II Hyperlipidemia Hypertension Kidney disease Social History Smoking Status: Former smoker tobacco type: cigarettes packs per day: 1 quit status: considering quitting second hand exposure: Yes ( smokes) alcohol intake: never counseling given: No counseling provided: none substance use type: former substance user, marijuana and other details: smokes cannabis; on a regular basis; says it helps her tingling; andsleep current occupational status: disabled Travel in the last 8 weeks: None adopted: No caregiver/support person: No foster care: No household members: spouse housing: house lives independently: Yes marital status: number of children: 1 number of grandchildren: 0 education level: high school service: No senior living: No current occupational exposures/hazards: No Hx Recent Travel: No sexually active: Yes caffeine: Yes physical activity: none working smoke detector in home: Yes fire extinguisher in home: No carbon monox detector in home: Yes firearms in home: No do you feel safe at home: Yes victim of physical abuse: No victim of emotional abuse: No victim of sexual abuse: No would you like helpful sources: No ROS Obtained: Yes All systems reviewed & no additional complaints except as documented Constitutional Constitutional: Denies chills, Reports fever(s) and Reports poor appetite Eyes Eyes: Denies eye discharge ENT Ears, Nose, Mouth, and Throat: Denies ear discharge, Reports otalgia, Denies hearing loss, Denies sinus pain and Reports sore throat Cardiovascular Cardiovascular: Denies chest pain and Denies dyspnea Respiratory Respiratory: Denies chest congestion, Reports cough and Denies dyspnea Gastrointestinal Gastrointestingal: Denies abdominal pain, diarrhea, nausea or vomiting Musculoskeletal Musculoskeletal: Denies arthralgias Integumentary/Breasts Skin/Breast: Denies rash Physical Exam General General appearance: alert and in no apparent distress Head Head exam: atraumatic, normocephalic and normal inspection Eye Eye exam: Present normal appearance; Absent PERRL or EOMI ENT ENT exam: Present mucous membranes moist and normal external ear exam Expanded ENT Exam TM/Canal exam: Bilateral TM: erythema, bulging and effusion Nose exam: Absent sinus tenderness Nasal speculum exam: Bilateral: normal Mouth exam: Present normal external inspection and other; Absent drooling Teeth exam: Present normal inspection Throat exam: Present tonsillar erythema and tonsillomegaly Neck Neck exam: Present normal inspection, full ROM and trachea midline; Absent tenderness, meningismus or lymphadenopathy Chest Chest inspection: Present normal inspection and symmetric chest wall rise; Absent tenderness Respiratory Respiratory exam: Present normal lung sounds bilaterally; Absent respiratory distress, wheezes or stridor Cardiovascular Cardiovascular exam: Present regular rate, normal rhythm and normal heart sounds; Absent tachycardia or irregular rhythm Abdominal Exam Abdominal exam: Present soft and normal bowel sounds; Absent distention, tenderness, guarding, rebound or rigidity Extremities Exam Extremities exam: Present normal inspection and normal capillary refill; Absent tenderness, joint swelling or calf tenderness Back Exam Back exam: Present normal inspection and full ROM; Absent tenderness, CVA tenderness (R) or CVA tenderness (L) Neurological Exam Neurological exam: Present alert, oriented X3, CN II-XII intact, normal gait and reflexes normal; Absent motor sensory deficit Psychiatric Psychiatric exam: Present normal affect and normal mood Skin Skin exam: Present warm, dry, intact and normal color Lymphatic Lymphatic Findings: no adenopathy Medical Decision Making Medical Records Medical records reviewed: No I reviewed the patient's medical records. Screening: Per USPSTF and CDC recommendations, given the prevalence of disease in our region, it is our hospital?s policy to screen for HIV and viral Hepatitis for all patients aged 18 and over and those with ongoing risk factors. Jim Inquiry Pt receiving controlled substance: No Lab Data Lab results reviewed: Yes I reviewed the patient's lab results.
[2024-10-19] MEDS: DEXAMETHASONE 4MG/ML 1ML VIAL 8 MG IM (10:05)
[2024-10-19 10:14] VITALS: BP 113/80; PULSE 96; RESP 18; TEMP 36.4
== END 2024-10-19 10:15 | disposition home or self-care (01) ==
PROVIDERS: Emergency Provider Nurse Practitioner Family; PCP Family Medicine
DX: H66.93 Otitis media, unspecified, bilateral (principal); J01.90 Acute sinusitis, unspecified
CPT/HCPCS: 96372; 99213; G0381; J1100

== ENCOUNTER 2024-10-25 08:37 | Outpatient (CLI) | payer MEDICARE, SELFPAY | END 2024-10-25 23:59 | disposition home or self-care (01) | LOC: LAB 08:37 | PROVIDERS: PCP Student in an Organized Health Care Education/Training Program; Visit Provider Specialist | DX: R56.9 Unspecified convulsions (principal); F44.4 Conversion disorder with motor symptom or deficit | CPT/HCPCS: 36415; 80177 ==

== ENCOUNTER 2024-11-08 09:08 | Outpatient (CLI) | payer MEDICARE, SELFPAY | END 2024-11-08 23:59 | disposition home or self-care (01) | LOC: LAB.DROPOF 11-11 09:09 | PROVIDERS: PCP Student in an Organized Health Care Education/Training Program; Visit Provider Student in an Organized Health Care Education/Training Program | DX: M54.50 Low back pain, unspecified (principal); N39.0 Urinary tract infection, site not specified | CPT/HCPCS: 87086; 87088; 87186 ==

== ENCOUNTER 2025-04-28 12:11 | Outpatient (CLI) | payer MEDICARE, MEDICAID, SELFPAY ==
[2025-04-28 19:33] LABS: Hematocrit 44.5 % (37.0-47.0); Hemoglobin 14.8 g/dL (12.2-16.2); Immature Granulocytes % 0.2 %; Mean Corpuscular HGB Conc 33.3 g/dL (31.8-35.4); Mean Corpuscular Hemoglobin 30.8 pg (27.0-31.2); Mean Corpuscular Volume 92.7 fl (81-99); Nucleated Red Blood Cells % 0 %; Platelet Count 249 K/mm3 (142-424); Red Blood Count 4.80 M/mm3 (4.20-5.40); Red Cell Distribution Width-SD 48.1 fL; White Blood Count 8.7 K/mm3 (4.8-10.8)
[2025-04-28 20:07] LABS: Alanine Aminotransferase 11 U/L (12-78); Albumin Level 4.3 g/dl (3.5-5.0); Albumin/Globulin Ratio 1.7 (1.1-1.8); Alkaline Phosphatase 73 U/L (38-126); Anion Gap 15.6 mEq/L (5-15); Aspartate Amino Transferase 15 U/L (14-36); Bilirubin,Total 0.6 mg/dl (0.2-1.3); Blood Urea Nitrogen 16 mg/dl (7-17); Calcium 8.9 mg/dl (8.4-10.2); Carbon Dioxide 23 mmol/L (22.0-30.0); Chloride 104 mmol/L (98-107); Cholesterol 246 mg/dl (140-200); Creatinine,Serum 0.70 mg/dl (0.52-1.04); Estimated Glomerular Filt Rate 94 ml/min (>60); GFR (African American) 114 ML/MIN (>60); Globulin 2.6 g/dL (1.3-3.2); Glucose 76 mg/dl (74-100); HDL Cholesterol 39 mg/dl (40-60); Potassium 4.6 mmoL/L (3.5-5.1); Sodium 138 mmol/L (136-145); Total Protein,Serum 6.9 g/dl (6.3-8.2); Triglycerides 153 mg/dl (30-150)
[2025-04-28 20:24] LABS: 25-OH Vitamin D, Total 19.0 ng/mL (30-100)
[2025-04-28 20:27] LABS: Hemoglobin A1C 5.9 % (4.0-6.0)
[2025-04-28 20:37] LABS: Thyroid Stimulating Hormone 0.68 uIU/mL (0.465-4.68)
[2025-04-28 21:02] LABS: Hepatitis C Ab Qual. W/ RFX NEGATIVE (Negative)
--- OUTSIDE RECORDS SUMMARY | 2025-04-29 07:57 | XMS_ITS | Referral Summary ---
Author Organization [facility] ([place], [place], [place], [place]) Address [address] [place] [address] Care Team Providers Care Network Liaison Name Role Phone Ce Maradiaga ASH KIER BOILER Primary Care Provider Unavailab le Allergies No known active allergies Medications baclofen (LIORESAL) 10 MG tablet Take 2 tablets (20 mg total) by mouth 3 (three) times daily. 10/30/2024 Active pantoprazole (PROTONIX) 40 MG tablet Take 1 tablet (40 mg total) by mouth daily. 10/21/2024 Active LORazepam (ATIVAN) 1 MG tablet Take 0.5-1 tablets (0.5-1 mg total) by mouth 2 (two) times daily as needed. Active Kesimpta Pen 20 mg/0.4 mL pnij Inject 1 pen. under the skin. 03/21/2024 Active Trintellix 10 mg tablet Take 1 tablet (10 mg total) by mouth daily. 11/15/2024 Active lamoTRIgine (LaMICtal) 25 MG tablet Take 2 tablets (50 mg total) by mouth daily . Active lacosamide (VIMPAT) 50 mg tab tablet Take 2 tablets (100 mg total) by mouth 2 (two) times daily Take 1 tablet twice daily for 4 days, then 1 tablet in a.m. and 2 tablets in p.m. for 4 days, then 2 tablets twice daily. Max Daily Amount: 200 mg 120 tablet 5 01/02/2025 Active Active Problems Problem Noted Date Diagnosed Date Complex partial seizures with consciousness impa ired 12/30/2024 Complex partial seizures zachary lving to generalized tonic-clonic seizures 12/27/2024 Social History Tobacco Use Types Packs/Day Years Used Date Smoking Tobacco: Never Smokeless Tobacco: Never Tobacco Cessation:Counseling Given: Not Answered Alcohol Use Standard Drinks/Week Comments Never 0 (1 standard drink = 0.6 oz pur e alcohol) Comments Unknown Sex and Gender Information Value Date Recorded Sex Assigned at Not on file Legal Sex Female 2:14 PM HOME BUILDER Gender Identity Not on file Sexual Orientation Not on file Last Filed Vital Signs Vital Sign Reading Time Taken Comments Blood Pressure 139/71 12/30/2024 5:36 AM EDT Pulse 67 12/30/2024 5:36 AM EDT Temperature 36.7 C (98.1 F) 12/30/2024 5:36 AM EDT Respiratory Rate 18 12/30/2024 5:36 AM EDT Oxygen Saturation 97% 12/30/2024 5:36 AM EDT Inhaled Oxygen Concentration - - Weight 119.7 kg (264 lb) 12/04/2024 10:33 AM EST Height 170.2 cm (5' 7 ) 12/04/2024 10:33 AM EST Body Mass Index 41.35 12/04/2024 10:33 AM EST Plan of Treatment Not on file Insurance [facility] ADV DUAL COMPLETE MEDICAID [id number] Advance Directives For more information, please contact: [phone] * Full Code (Latest Code Status on File) Date Activated Date Inactivated Comments 12/27/2024 10:32 AM 12/30/2024 3:25 PM Care Teams Network Liaison Relationship Specialty Start Date End Date Ce Maradiaga, CLAYTON PCP - General Respiratory Therapy 12/27/24
--- OUTSIDE RECORDS SUMMARY | 2025-04-29 07:57 | XMS_ITS | Patient Health Record ---
Author Organization [facility] Address [address] [place] [address] Care Team Providers Care Website Programmer Name Role Phone CECILIA WEINER Unavailable [phone] Allergies No Known Allergies Reason For Referral Reason Please evaluate and treat Diagnosis 1 Toothache (K08.89) Referral Organization [facility] Prac becky Referring Provider First Name CECILIA Referring Provider Last Name REGINE Referring Provider Speciality General Pr actice Referred Provider Specialty Dental Care Referral Priority Routine Referral Appointment Date 09/30/2024 Medications Medication SIG (Take, Route, Frequency, Duration) Notes Start Date End Date Status Penicillin V Potassium 500 MG 1 tablet Orally Twice a day for 10 days 09/30/2024 Active LORazepam 1 MG TAKE 1/2 (ONE-HALF) TO 1 TABLET BY MOUTH TWICE DAILY NEEDED FOR ANXIETY Oral for 15 Days Not-Taking Chlorhexidine Gluconate 0.12 % 15 mL swish for 30 seconds, then spit. Do not swallow. Mouth/Throat Twice a day for 30 days 09/30/2024 Active buPROPion HCl ER (XL) 150 MG TAKE 2 TABLETS BY MOUTH ONCE DAILY Oral for 30 Days Not-Taking PARoxetine HCl 30 MG TAKE 2 TABLETS BY MOUTH ONCE DAILY Oral for 30 Days Not-Taking levETIRAcetam 500 MG TAKE 1 TABLET BY MO UT TWICE DAILY Oral for 30 Days Active Social History Tobacco Use: Social History Observation Description Date Details (start date - stop date) Current Smoker NA - NA Tobacco Control (Standard) Question Answer Notes Tobacco use: Current smoker How many cigarettes a day do you smoke? 11-20 Vital Signs Height 71 in 09/30/2024 Patient Reported Normal Blood Pressure Patient Reported Normal Temperature Weight 230 lbs 09/30/2024 Patient Reported Normal Blood Pressure Patient Reported Normal Temperature BMI 32.07 kg/m2 09/30/2024 Patient Reported Normal Blood Pressure Patient Reported Normal Temperature Encounters Encounter Location Date Provider Diagnosis [facility] [address] [place] [address] 09/30/2024 CECILIA WEIENR Toothache K08.89 Assessments Encounter Date Diagnosis (ICD Code) Assessment Notes Treatment Notes Treatment Clinical Notes Section Notes 09/30/2024 Toothache (ICD-10 - K08.89) TREATMENT PLAN: Patient presents with symptoms that may be compatible with dental infection. History limited by no physical examination. We will only be able to provide treatment that is a bridge to definitive evaluation and care by PCP or a dentist. 1. Use peridex (chlorhexidine) swish and spit twice daily until symptoms begin to improve. This is an anti-septic mouthwash. You should continue this until you see a dentist. I recommend seeing a dentist within 1-2 weeks. 2. Will give short course of oral antibiotics (PenVK, Augmentin, Amoxicillin, Clindamycin, Doxycycline, etc) for a short course. You should first try peridex (chlorhexidine) for at least 3-5 days prior to taking oral antibiotics. Oral antibiotics are rarely needed as first line but given this limited form of medical care, we have sent antibiotics. If symptoms worsen or do not improve, can take this. 3. Ibuprofen 400-800mg every 8 hours for pain/swelling (if not allergic). Can also use over the counter Orajel (if not allergic). Other options we can provide are meloxicam or diclofenac as needed for pain. 4. Recommend follow up in 3 days. If you have fever over 100.4 F, visible facial/neck swelling, difficulty swallowing, or if symptoms worsen, go to the emergency room. Female patients only please note: Control efficacy can be DIMINISHED while taking antibiotics. It is advised to take additional measures to prevent .PATIENT EDUCATION: Overview The most common causes of dental pain are tooth decay and gum disease. Pain can also be caused by an infection of the tooth (abscess) or the gums. Or you may have pain from a broken or cracked tooth. Other causes of pain include infection and damage to a tooth from nervous grinding of your teeth. A wisdom tooth can be painful when it is coming in but cannot break through the gum. It can also be painful when the tooth is only partway in and extra gum tissue has formed around it. The tissue can get inflamed (pericoronitis), and sometimes it gets infected. Prompt dental care can help find the cause of your toothache and keep the tooth from dying or gum disease from getting worse. Self-care at home may reduce your pain and discomfort. Follow-up care is a siddiqi part of your treatment and safety. Be sure to make and go to all appointments, and call your dentist or doctor if you are having problems. It's also a good idea to know your test results and keep a list of the medicines you take. How can you care for yourself at home? To reduce pain and facial swelling, put an ice or cold pack on the outside of your cheek for 10 to 20 minutes at a time. Put a thin cloth between the ice and your skin. Do not use heat. If your doctor prescribed antibiotics, take them as directed. Do not stop taking them just because you feel better. You need to take the full course of antibiotics. Ask your doctor if you can take an [id number] pain medicine, such as acetaminophen (Tylenol), ibuprofen (Advil, Motrin), or naproxen (Aleve). Be safe with medicines. Read and follow all instructions on the label. Avoid very hot, cold, or sweet foods and drinks if they increase your pain. Rinse your mouth with warm salt water every 2 hours to help relieve pain and swelling. Mix 1 teaspoon of salt in 8 ounces of water. Talk to your dentist about using special toothpaste for sensitive teeth. To reduce pain on contact with heat or cold or when brushing, brush with this toothpaste regularly or rub a small amount of the paste on the sensitive area with a clean finger 2 or 3 times a day. Floss gently between your teeth. Do not smoke or use spit tobacco. Tobacco use can make gum problems worse, decreases your ability to fight infection in your gums, and delays healing. If you need help quitting, talk to your doctor about stop-smoking programs and medicines. These can increase your chances of quitting for good. When should you call for help? Call 911 anytime you think you may need emergency care. For example, call if: You have trouble breathing. Call your dentist or doctor now or seek immediate medical care if: You have signs of infection, such as: Increased pain, swelling, warmth, or redness. Red streaks leading from the area. Pus draining from the area. A fever.FIRST ASYNCHRONOUS ACUTE CARE VISIT Acute Care Visit: All subsequent visits for your concern addressed today must be conducted via video consultation. Further Management: If your symptoms do not improve, consider scheduling a follow-up video visit for further assessment, or an in-person visit for a more comprehensive evaluation. 09/30/2024 Other Follow the treatment plan as indicated by the provider. Take any medications as prescribed. If you have any questions about your prescription, ask the pharmacist. This treatment plan is based on the information you have provided to us today. Incomplete disclosure of your medical history, past treatments, or current medications may affect the effectiveness of this treatment. Call 911 anytime you think you may need emergency care. For example, call if:You have severe trouble breathing.You have a seizure.Call your doctor now or seek immediate medical care if:You have trouble breathing.You have a fever with a stiff neck or a severe headache.You have pain or pressure in your chest or belly.You have a fever or cough that returns after getting better.You feel very sleepy, dizzy, or confused.You are not urinating.You have severe muscle pain.You have severe weakness, or you are unsteady.You have medical conditions that are getting worse.Watch closely for changes in your health, and be sure to contact your doctor if:You do not get better as expected.You are having a problem with your medicine. You participated in a [facility] request, considered an asynchronous visit where you provide your symptoms and medical history, and a treatment plan is formulated based on your submission. A treatment plan and patient education were provided based on your submission. If symptoms persist or worsen, you should seek in-person care or call 911 immediately for further evaluation. Plan Of Treatment No Information Insurance Providers Payer Name Payer Address Payer Phone Subscriber Number Group Number Insured Name Patient Relationship to Insured Coverage Start Date Coverage End Date [facility] [address] [address] [place] [address] [phone] [id number] Lo David Self - patient is the insured
--- OUTSIDE RECORDS SUMMARY | 2025-04-29 07:57 | XMS_ITS | Clinical Summary ---
Author Organization [facility] Address [facility] [place] [address] Care Team Providers Care Supervisor Furnace Process Name Role Phone Lily Rey MD Unavailable + [phone] Kenyatta Hinojosa Primary Care Provider [phone] Allergies Active Allergy Reactions Criticality Noted Date Comments Cocos Nucifera Other - please document in the comment field High 08/08/2022 Mushroom Extract Complex (Obsolete) Other - please document in the comment field High 08/08/2022 Mushrooms (food ) Medications diphenhydrAMINE HCl (BENADRYL ALLERGY PO) Take by mouth. Act afia Ventolin HFA 108 (90 Base) MCG/ACT inhaler INHALE 2 PUFFS BY MOUTH EVERY 4 TO 6 HOURS NEEDED FOR SHORTNESS OF BREATH FOR WHEEZING 2 Active baclofen (Lioresal) 10 MG tablet TAKE 1 TABLET BY MOUTH THREE TIMES DAILY FOR SPASTICITY 3 Active pantoprazole (Protonix) 40 MG EC tablet Take 1 tablet (40 mg) by mouth 1 (one) time each day. 3 Active buPROPion XL (Wellbutrin XL) 300 MG 24 hr tablet Take 1 tablet (300 mg) by mouth 1 (one) time each day. 3 Active EQ Allergy Relief 25 MG tablet TAKE 1 TABLET BY MOUTH ONCE DAILY AT BEDTIME NEEDED MAX DAILY DOSE 50 MG 3 Active doxepin (SINEquan) 25 MG capsule TAKE 1 CAPSULE BY MOUTH EVERY DAY 1 HOUR BEFORE BEDTIME FOR ANXIETY, DEPRESSION, AND INSOMNIA MAX DAILY DOSE 25 MG 3 Active ergocalciferol 1.25 MG (54036 UT) capsule Take 1 capsule (50,000 Units) by mouth 1 (one) time per week. 3 Active ibuprofen 600 MG tablet Take 1 tablet (600 mg) by mouth 2 (two) times a day if needed. 3 Active minocycline 100 MG capsule TAKE 1 CAPSULE BY MOUTH TWICE DAILY FOR 10 DAYS 3 Active ondansetron (Zofran) 4 MG tablet TAKE 1 TABLET BY MOUTH 4 TIMES DAILY 3 Active mupirocin (Bactroban) 2 % ointment 3 Active cyanocobalamin 2500 MCG tablet Take by mouth 1 (one) time each day. 5000 daily Active buPROPion XL (Wellbutrin XL) 150 MG 24 hr tablet Take 1 tablet (150 mg) by mouth 1 (one) time each day in the morning. 4 Active PARoxetine (Paxil) 40 MG tablet Take 1 tablet (40 mg) by mouth 1 (one) time each day. 4 Active predniSONE (Deltasone) 50 MG tablet Take 1 tablet (50 mg) by mouth 2 (two) times a day. 4 Active LORazepam (Ativan) 0.5 MG tablet TAKE 1/2 TO 1 (ONE-HALF TO ONE) TABLET BY MOUTH ONCE DAILY NEEDED FOR ANXIETY 4 Active amoxicillin (Amoxil) 875 MG tablet 4 Active levETIRAcetam (Keppra) 500 MG tablet 1 tablet (500 mg). 4 Active Ofatumumab (Kesimpta) 20 MG/0.4ML solution auto-injector Inject 1 pen. under the skin every 30 days. 0.4 mL 1 5 Active Active Problems No known active problems Encounters Date Type Department Care Team Description 03/10/2025 Refill [place] [facility] [address] [place] [id number] Lily Rey MD from Last 3 Months Family History Medical History Relation Name Comments Anxiety disorder Brother Diabetes Other uncle Relation Name Status Comments Brother Other uncle Social History Tobacco Use Types Packs/Day Years Used Date Smoking Tobacco: Former Cigarettes Passive Smoke Exposure: Never Smokeless Tobacco: Never Tobacco Cessation:Counseling Given: Not Answered Alcohol Use Standard Drinks/Week Comments Never 0 (1 standard drink = 0.6 oz pur e alcohol) PHQ-2 Answer Date Recorded Patient Health Questionnaire-2 Score 0 10/21/2024 Comments Unknown Sex and Gender Information Value Date Recorded Sex Assigned at Female 12/10/2022 4:36 PM EST Legal Sex Female 8:09 PM EDT Gender Identity Female 08/05/2022 8:10 AM EDT Sexual Orientation Straight 12/10/2022 4: 36 PM EST Last Filed Vital Signs Vital Sign Reading Time Taken Comments Blood Pressure 111/70 10/21/2024 1:27 PM EST Pulse 70 10/21/2024 1:27 PM EST Temperature 36.6 C (97.8 F) 10/21/2024 1:27 PM EST Respiratory Rate 16 01/04/2024 9:38 AM EDT Oxygen Saturation 95% 10/21/2024 1:27 PM EST Inhaled Oxygen Concentration - - Weight 133 kg (294 lb) 10/21/2024 1:27 PM EST Height 170.2 cm (5' 7 ) 10/21/2024 1:27 PM EST Body Mass Index 46.05 10/21/2024 1:27 PM EST Plan of Treatment Upcoming Encounters Date Type Department Care Team (Late st Contact Info) Description 05/05/2025 3:00 PM EDT Office Visit [facility] [address] [place] [address] Lily Rey MD [address] [place] [address] Health Maintenance Due Date Last Done Comments [facility]-HIV Screening 1987 [facility]-Hepatitis C Screening 1987 [facility]-Medicare Annual Wellness (AWV) 1987 [facility]-Infant/Child/Adol SDOH Screenings 1987 [facility]-Varicella Vaccines (1 of 2 - 13+ 2-dose series) 2000 HPV Vaccines (1 - 3-dose series) 2002 [facility]- SDOH Screenings 2005 [facility]-Adult SDOH Screenings 2005 [facility]-DTaP,Tdap,and Td Vaccines (1 - Tdap) 2006 [facility]-Hepatitis B Vaccines (1 of 3 - 19+ 3-dose series) 2006 [facility]-Zoster Vaccines (1 of 2) 2006 [facility]-Pap Smear 2008 [facility]-Cervical Cancer Screening 2017 [facility]-HPV/Cotest 2017 [id number] Vaccine (3 - Moderna risk series) 05/06/2021 04/08/2021, 03/09/2021 [facility]-Influenza Vaccine (#1) 2025 [facility]-Depression Screening 10/21/2025 10/21/2024 [facility]-Obesity Intervention Completed 024, 04/11/2024, 01/04/2024, Additional history exists [facility]-HIB Vaccines Aged Out No longer e ligible based on patient's age to complete this topic [facility]-Hepatitis A Vaccines Aged Out No longer eligible based on patient's age to complete this topic [facility]-IPV Vaccines Aged Out No longer e ligible based on patient's age to complete this topic [facility]-Pneumococcal Vaccine: Pediatrics (0 to 5 Years) and At-Risk Patients (6 to 49 Years) Aged Out No longer eligible based on patient's age to complete this topic [facility]-Rotavirus Vaccines Aged Out No lo nger eligible based on patient's age to complete this topic Insurance [address] [facility] [id number] MEDICAID-[place] [facility] MEDICARE Care Teams Supervisor Furnace Process Relationship Specialty Start Date End Date Kenyatta Hinojosa PA [address] [place] [address] PCP - General 01/04/24 Lily Rey MD [id number] [place] [address] Service Attending Neurology 08/08/22
--- OUTSIDE RECORDS SUMMARY | 2025-04-29 07:57 | XMS_ITS | Encounter Summary ---
Author Organization Healthcare Address [address] [place] [address] Care Team Providers Care Forestry Foreman Name Role Phone Lily Rey MD Unavailable + [phone] Hilario Mack MD Primary Care Provider + [phone] Kenyatta Hinojosa Primary Care Provider [phone] Encounter Details Date Type Department Care Team (Late st Contact Info) Description 12/15/2022 [facility] [address] [place] [address] Clair Landa MD [address] [place] [id number] Multiple sclerosis (CMS/HCC) (Primary Dx) Social History Tobacco Use Types Packs/Day Years Used Date Smoking Tobacco: Every Day Cigarettes Passive Smoke Exposure: Never Smokeless Tobacco: Never Alcohol Use Standard Drinks/Week Comments Never 0 (1 standard drink = 0.6 oz pur e alcohol) Comments Unknown Sex and Gender Information Value Date Recorded Sex Assigned at Female 12/10/2022 4:36 PM EST Legal Sex Female 8:09 PM EDT Gender Identity Female 08/05/2022 8:10 AM EDT Sexual Orientation Straight 12/10/2022 4: 36 PM EST documented as of this encounter Plan of Treatment Upcoming Encounters Date Type Department Care Team (Late st Contact Info) Description 05/05/2025 3:00 PM EDT [facility] Visit [facility] [address] [place] [address] AvLily gacria MD [address] [facility] [address] [place] [address] documented as of this encounter Visit Diagnoses Diagnosis Multiple sclerosis (CMS/HCC)- Primary Multiple sclerosis documented in this encounter Additional Health Concerns Assessment Noted Time A Body Mass Index follow-up plan has been documented for the patient 11/10/2022 9:37 AM EST documented as of this encounter Care Teams Forestry Foreman Relationship Specialty Start Date End Date Hilario Mack MD [address] [place] [address] PCP - General 08/08/22 01/03/24 Kenyatta Hinojosa PA [address] [place] [address] PCP - General 01/04/24 Lily Rey MD [address] [place] [address] Service Attending Neurology 08/08/22 documented as of this encounter
--- OUTSIDE RECORDS SUMMARY | 2025-04-29 07:57 | XMS_ITS | Encounter Summary ---
Author Organization Healthcare Address [address] [place] [address] Care Team Providers Care Aviation Technical Systems Specialist Name Role Phone Lily Rey MD Unavailable + [phone] Hilario Mack MD Primary Care Provider + [phone] Kenyatta Hinojosa Primary Care Provider [phone] Encounter Details Date Type Department Care Team (Late st Contact Info) Description 08/02/2022 Orders Only External Location [address] [place] [address] Provider, External Social History Tobacco Use Types Packs/Day Years Used Date Smoking Tobacco: Never Assessed Comments Unknown Sex and Gender Information Value Date Recorded Sex Assigned at Female 12/10/2022 4:36 PM EST Legal Sex Female 8:09 PM EDT Gender Identity Female 08/05/2022 8:10 AM EDT Sexual Orientation Straight 12/10/2022 4: 36 PM EST documented as of this encounter Plan of Treatment Upcoming Encounters Date Type Department Care Team (Late Contact Info) Description 05/05/2025 3:00 PM EDT Office Visit [facility] [address] [place] [address] Lily Rey MD [address] [place] [address] documented as of this encounter Procedures Procedure Name Priority Date/Time Associated Diagnosis Comments MR MSK OUTSIDE IMAGES 08/02/2022 9:54 AM EDT documented in this encounter Results * MR MSK OUTSIDE IMAGES (08/02/2022 9:54 AM EDT) Anatomical Region Laterality Modality Magnetic Resonan ce 08/02/2022 9:54 AM EDT us External Provider IMG MRI PROCEDURES Final Resul t documented in this encounter Visit Diagnoses Not on filedocumented in this encounter Care Teams Aviation Technical Systems Specialist Relationship Specialty Start Date End Date Hilario Mack MD [address] [place] [address] PCP - General 08/08/22 01/03/24 Kenyatta Hinojosa PA [address] [place] [address] PCP - General 01/04/24 Lily Rey MD [id number] [place] [address] Service Attending Neurology 08/08/22 documented as of this encounter
--- OUTSIDE RECORDS SUMMARY | 2025-04-29 07:57 | XMS_ITS | Encounter Summary ---
Author Organization Healthcare Address [address] [place] [address] Care Team Providers Care Wardrobe Attendant Name Role Phone Lily Rey MD Unavailable [phone] Kenyatta Hinojosa Primary Care Provider [phone] Reason for Visit * Reason Onset Date Comments Med Refill 03/10/2025 Encounter Details Date Type Department Care Team (Late st Contact Info) Description 03/10/2025 [facility]ill [facility] [address] [place] [address] Lily Rey MD [address] [place] [address] Social History Tobacco Use Types Packs/Day Years [...] PM EST documented as of this encounter Miscellaneous Notes * Telephone Encounter - Elvis Basilio, AdelineD - 03/12/2025 3:04 PM EDT Refill request received via Pik[facility]chart. 1 medication(s) has been approved per protocol. documented in this encounter Plan of Treatment Upcoming Encounters Date Type Department Care Team (Late st Contact Info) Description 05/05/2025 3:00 PM EDT Office Visit [facility] Orthopaedic Surgery [facility] Medicine [address] [place] [address] Lily Rey MD [address] [facility] [address] [place] [address] documented as of this encounter Visit Diagnoses Not on filedocumented in this encounter Additional Health Concerns Assessment Noted Time A fall risk assessment has been complete d for the patient 04/11/2024 9:23 AM EDT A Body Mass Index follow-up plan has been documented for the patient 10/21/2024 2:12 PM EST documented as of this encounter Care Teams Wardrobe Attendant Relationship Specialty Start Date End Date Kenyatta Hinojosa PA [address] [place] [address] PCP - General 01/04/24 Lily Rey MD [address] [facility] [address] [place] [address] Service Attending Neurology 08/08/22 documented as of this encounter
--- OUTSIDE RECORDS SUMMARY | 2025-04-29 07:57 | XMS_ITS | Encounter Summary ---
Author Organization Healthcare Address [address] [place] [address] Care Team Providers Care Unclaimed Property Manager Name Role Phone Lily Rey MD Unavailable + [phone] Hilario Mack MD Primary Care Provider + [phone] Kenyatta Hinojosa Primary Care Provider [phone] Encounter Details Date Type Department Care Team (Late st Contact Info) Description 06/29/2022 Orders Only External Location [address] [place] [address] Provider, External Social History Tobacco Use Types [...] Description 05/05/2025 3:00 PM EDT Office Visit [place] [facility] [address], [address] [place] [address] Lily Rey MD [address] [place] [address] documented as of this encounter Procedures Procedure Name Priority Date/Time Associated Diagnosis Comments MR MSK OUTSIDE IMAGES 06/29/2022 7:38 AM EDT documented in this encounter Results * MR MSK OUTSIDE IMAGES (06/29/2022 7:38 AM EDT) Anatomical Region Laterality Modality Magnetic Resonan ce 06/29/2022 7:38 AM EDT us External Provider IMG MRI PROCEDURES Final Resul t documented in this encounter Visit Diagnoses Not on filedocumented in this encounter Care Teams Unclaimed Property Manager Relationship Specialty Start Date End Date Hilario Mack MD [address] [place] [address] PCP - General 08/08/22 01/03/24 Kenyatta Hinojosa PA [address] [place] [address] PCP - General 01/04/24 Lily Rey MD [id number] [place] [address] Service Attending Neurology 08/08/22 documented as of this encounter
--- OUTSIDE RECORDS SUMMARY | 2025-04-29 07:57 | XMS_ITS | Encounter Summary ---
Author Organization Healthcare Address [address] [place] [address] Care Team Providers Care Supervisor Steffen House Name Role Phone Lily Rey MD Unavailable + [phone] Hilario Mack MD Primary Care Provider + [phone] Kenyatta Hinojosa Primary Care Provider [phone] Encounter Details Date Type Department Care Team (Late st Contact Info) Description 08/04/2022 Orders Only External Location [address] [place] [address] Provider, External Social History Tobacco Use Types [...] Description 05/05/2025 3:00 PM EDT Office Visit [place] [facility] [address] [place] [address] Lily Rey MD [address] [place] [address] documented as of this encounter Procedures Procedure Name Priority Date/Time Associated Diagnosis Comments MR NEURO OUTSIDE IMAGES 08/04/2022 12:36 PM EDT documented in this encounter Results * MR NEURO OUTSIDE IMAGES (08/04/2022 12:36 PM EDT) Anatomical Region Laterality Modality Magnetic Resonan ce 08/04/2022 12:3 6 PM EDT us External Provider IMG MRI PROCEDURES Final Resul t documented in this encounter Visit Diagnoses Not on filedocumented in this encounter Care Teams Supervisor Steffen House Relationship Specialty Start Date End Date Hilario Mack MD [address] [place] [address] PCP - General 08/08/22 01/03/24 Kenyatta Hinojosa PA [address] [place] [address] PCP - General 01/04/24 Lily Rey MD [address] [facility] [address] [place] [address] Service Attending Neurology 08/08/22 documented as of this encounter
--- OUTSIDE RECORDS SUMMARY | 2025-04-29 07:57 | XMS_ITS | Clinical Summary ---
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 12/27/2024 Family History Medical History Relation Name Comments Coronary artery disease Other Diabetes Other Hyperlipidemia Other Hypertension Other Relation Name Status Comments Other Social History Tobacco Use Types Packs/Day Years Used Date Smoking Tobacco: Never Smokeless Tobacco: Never Tobacco Cessation:Counseling Given: Not Answered Alcohol Use Standard Drinks/Week Comments Never 0 (1 standard drink = 0.6 oz pur e alcohol) Comments Unknown Sex and Gender Information Value Date Recorded Sex Assigned at Not on file Legal Sex Female 2:14 PM SYNTHETIC FILAMENT EXTRUDER Gender Identity Not on file Sexual Orientation [...] 12/04/2024 10:33 AM EST Plan of Treatment Health Maintenance Due Date Last Done Comments Depression Screening (12+) 1999 HIV Screening 2002 Hepatitis C Screening 2005 DTAP/TDAP/TD VACCINES (1 - Tdap) 2006 Lipid Panel 2007 Pap Smear 2008 COVID-19 VACCINE (3 - 2023-2 5 season) 2024 04/08/2021, 03/09/2021 Medicare IPPE (Welcome to Medicare) [id number] 10/23/2024 Influenza Vaccine (#1) 2025 Tobacco Cessation Counseling and Screening (12+) 12/04/2025 12/04/2024 Pneumococcal Vaccine: 0-49 Years Aged Out No longer eligible b ased on patient's age to complete this topic Insurance [facility] ADV DUAL COMPLETE MEDICAID QMB Advance Directives For more information, please contact: [phone] * Full Code (Latest Code Status on File) Date Activated Date Inactivated Comments 12/27/2024 10:32 AM 12/30/2024 3:25 PM Care Teams Power Plant Inspector Relationship Specialty Start Date End Date Ce Maradiaga, CLAYTON PCP - General Respiratory Therapy 12/27/24
--- OUTSIDE RECORDS SUMMARY | 2025-04-29 07:57 | XMS_ITS | Encounter Summary ---
Author Organization Healthcare Address [address] [place] [address] Care Team Providers Care Research Center Director Name Role Phone Lily Rey MD Unavailable + [phone] Hilario Mack MD Primary Care Provider + [phone] Kenyatta Hinojosa Primary Care Provider [phone] Encounter Details Date Type Department Care Team (Late st Contact Info) Description 07/29/2022 Orders Only External Location [address] [place] [address] Provider, External Social History Tobacco Use Types [...] Description 05/05/2025 3:00 PM EDT Office Visit [place] [facility] [address] [place] [address] Lily Rey MD [address] [place] [address] documented as of this encounter Procedures Procedure Name Priority Date/Time Associated Diagnosis Comments MR MSK OUTSIDE IMAGES 07/29/2022 9:29 AM EDT documented in this encounter Results * MR MSK OUTSIDE IMAGES (07/29/2022 9:29 AM EDT) Anatomical Region Laterality Modality Magnetic Resonan ce 07/29/2022 9:29 AM EDT us External Provider IMG MRI PROCEDURES Final Resul t documented in this encounter Visit Diagnoses Not on filedocumented in this encounter Care Teams Research Center Director Relationship Specialty Start Date End Date Hilario Mack MD [address] [place] [address] PCP - General 08/08/22 01/03/24 Kenyatta Hinojosa PA [address] [place] [address] PCP - General 01/04/24 Lily Rey MD [id number] [place] [address] Service Attending Neurology 08/08/22 documented as of this encounter
--- OUTSIDE RECORDS SUMMARY | 2025-04-29 07:57 | XMS_ITS | Encounter Summary ---
Author Organization Healthcare Address [address] [place] [address] Care Team Providers Care Auto Transmission Specialist Name Role Phone Lily Rey MD Unavailable + [phone] Hilario Mack MD Primary Care Provider + [phone] Kenyatta Hinojosa Primary Care Provider [phone] Encounter Details Date Type Department Care Team (Late Contact Info) Description 12/12/2022 [facility] [address] [place] [address] Clair Landa MD [address] [facility] [address] [place] [id number] Social History Tobacco Use Types Packs/Day Years [...] [facility] [address] [place] [address] Lily Rey MD [id number] [place] [address] documented as of this encounter Visit Diagnoses Not on filedocumented in this encounter Additional Health Concerns Assessment Noted Time A Body Mass Index follow-up plan has been documented for the patient 11/10/2022 9:37 AM EST documented as of this encounter Care Teams Auto Transmission Specialist Relationship Specialty Start Date End Date Hilario Mack MD [address] [place] [address] PCP - General 08/08/22 01/03/24 Kenyatta Hinojosa PA [address] [place] [address] PCP - General 01/04/24 Lily Rey MD [address] [address] Service Attending Neurology 08/08/22 documented as of this encounter
--- OUTSIDE RECORDS SUMMARY | 2025-04-29 07:57 | XMS_ITS | Encounter Summary ---
Author Organization [facility] Address [address] [place] [address] Care Team Providers Care Qa Lead Name Role Phone Lily Rey MD Unavailable + [phone] Hilario Mack MD Primary Care Provider + [phone] Kenyatta Hinojosa Primary Care Provider [phone] Reason for Referral * Consultation (Routine) - Closed Specialty Diagnoses / Procedures Referred By Contac t Referred To Contact Neurology Diagnoses Demyelinating disease of central nervous system (CMS/HCC) Clair Landa MD [address] [place] [address] [place] [address] Phone: tel: fax: Lily Rey MD [address] [place] [address] Phone: tel: fax: Referral ID Status Reason Start Date Expiration Date V isits Requested Visits Authorized [id number] Closed Specialty Services Required 08/05/2022 02/04/2024 1 1 Encounter Details Date Type Department Care Team (Latest Contact Info) Description 08/05/2022 [facility] [address] [place] [address] Clair Landa MD [address] [place] [address] Demyelinating disease of central nervous system (CMS/HCC) (Primary Dx) Social History Tobacco Use Types Packs/Day Years Used Date Smoking Tobacco: Never Assessed Comments Unknown Sex and Gender Information Value Date Recorded Sex Assigned at Female 12/10/2022 4:36 PM EST Legal Sex Female 8:09 PM EDT Gender Identity Female 08/05/2022 8:10 AM EDT Sexual Orientation Straight 12/10/2022 4: 36 PM EST COVID-19 Exposure Response Date Recorded In the last 10 days, have yo u been in contact with someone who was confirmed or suspected to have Coronavirus/COVID-19? No / Unsure 08/08/2022 10:36 AM EDT documented as of this encounter Plan of Treatment Upcoming Encounters Date Type Department Care Team (Late st Contact Info) Description 05/05/2025 3:00 PM EDT Office Visit [facility] [address] [place] [address] Lily Rey MD [id number] [place] [address] Scheduled Referrals Name Type Priority Associated Diagnoses Order Schedule Ambulatory referral to Neurology Outpatient Referral Routine Demyelinating disease of central nervous system (CMS/HCC) Expected: 08/12/2022, Expires: 02/04/2024 documented as of this encounter Visit Diagnoses Diagnosis Demyelinating disease of central nervous system (CMS/HCC)- Primary Unspecified demyelinating disease of central nervous system documented in this encounter Care Teams Qa Lead Relationship Specialty Start Date End Date Hilario Mack MD [address] [place] [address] PCP - General 08/08/22 01/03/24 Kenyatta Hinojosa PA [address] [place] [address] PCP - General 01/04/24 Lily Rey MD [address] [facility] [address] [place] [address] Service Attending Neurology 08/08/22 documented as of this encounter
--- OUTSIDE RECORDS SUMMARY | 2025-04-29 07:57 | XMS_ITS | Encounter Summary ---
Author Organization Healthcare Address [address] [place] [address] Care Team Providers Care Professor Of Art Name Role Phone Lily Rey MD Unavailable + [phone] Hilario Mack MD Primary Care Provider + [phone] Kenyatta Hinojosa Primary Care Provider [phone] Encounter Details Date Type Department Care Team (Late st Contact Info) Description 08/02/2022 Orders Only External Location [address] [place] [address] Provider, External Social History Tobacco Use Types [...] Description 05/05/2025 3:00 PM EDT Office Visit [place] [facility] [address] [place] [address] Lily Rey MD [address] [place] [address] documented as of this encounter [...] on filedocumented in this encounter Care Teams Professor Of Art Relationship Specialty Start Date End Date Hilario Mack MD [address] [place] [address] PCP - General 08/08/22 01/03/24 Kenyatta Hinojosa PA [address] [place] [address] PCP - General 01/04/24 Lily Rey MD [id number] [place] [address] Service Attending Neurology 08/08/22 documented as of this encounter
[2025-04-30 09:14] LABS: Hepatitis B Surface Antigen Negative (Negative)
== END 2025-04-28 23:59 | disposition home or self-care (01) ==
LOC: LAB.DROPOF 04-29 07:41
PROVIDERS: PCP Family Medicine; Visit Provider Family Medicine
DX: E55.9 Vitamin D deficiency, unspecified (principal); Z11.59 Encounter for screening for other viral diseases; Z68.39 Body mass index [BMI] 39.0-39.9, adult
CPT/HCPCS: 80053; 80061; 80074; 82306; 83036; 84443; 85025; 87340; 87389